=== PATIENT | female | born 2000 | race Caucasian/White ===

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

== ENCOUNTER 2020-03-06 17:03 | Emergency (ER) | payer BC, OTHER ==
[2020-03-06 17:12] VITALS: RESP 18
[2020-03-06] MEDS ORDERED: KETOROLAC 15 MG/ML 1 ML VIAL IM STA (18:30)
--- NOTE | 2020-03-06 18:35 | XR ---
EXAMINATION TYPE: XR Hip RT and AP Pelvis DATE OF EXAM: 03/06/2020 COMPARISON: NONE HISTORY: Pelvic and right hip pain for 3 days. TECHNIQUE: A single AP view of the pelvis is obtained. Two views of the right hip are obtained. FINDINGS: There is no acute fracture/dislocation evident in the pelvis. The hip and sacroiliac join ts appear symmetric and unremarkable. Pubic symphysis is intact. The overlying soft tissue appears u nremarkable. Two views of right hip show no acute fracture or dislocation. No focal lytic or sclerotic lesion see n in the proximal right femur. The overlying soft tissue is unremarkable. Growth plates are closed. IMPRESSION: As above.
--- NOTE | 2020-03-06 19:22 | ED ---
Lower Extremity Injury HPI - General Chief Complaint: Extremity Injury, Lower Stated Complaint: hip pain Time Seen by Provider: 03/06/20 17:15 Source: patient Mode of arrival: ambulatory Limitations: no limitations - History of Present Illness Initial Comments: Patient is a 19-year-old female presenting to emergency Department with complaints of lateral right hip pain for the past 3 days. Patient denies any injuries or fall or specific events that could've triggered this pain. She states she's never had this before. She [place] and running around. The urgent care today for an x-ray and they sent her in the ER. Patient denies any fever, chills, nausea or vomiting. 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 She has no further complaints at this time. Upon arrival to the ER, her vitals are stable. - Related Data Home Medications Medication Instructions Recorded Confirmed Albuterol Nebulized [Ventolin 2.5 mg INHALATION RT-Q4H PRN 08/03/17 08/03/17 Nebulized] Amoxicillin/Potassium Clav 1 tab PO Q12HR 08/03/17 08/03/17 [Augmentin 875-125 Tablet] Fluticasone Nasal [place] [Flonase 1 spray EA NOSTRIL DAILY PRN 08/03/17 08/03/17 Nasal [place]] Naproxen Sodium [Aleve] 440 mg PO ONCE PRN 08/03/17 08/03/17 Norgestimate-Ethinyl Estradiol 1 tab PO DAILY 08/03/17 08/03/17 [Sprintec 28 Day Tablet] predniSONE 10 mg PO DAILY 08/03/17 08/03/17 Previous Rx's Medication Instructions Recorded Albuterol Nebulized [Ventolin 2.5 mg INHALATION Q4H PRN 10 Days 08/03/17 Nebulized] nebu Butalb/APAP/Caff 50-325-40Mg 1 tab PO Q4H PRN #12 tablet 02/04/18 [Fioricet 50-325-40] Nitrofurantoin Monohyd/M-Cryst 100 mg PO Q12HR #14 cap 02/04/18 [Macrobid] predniSONE 50 mg PO DAILY #3 tab 02/17/19 predniSONE [Deltasone] 20 mg PO BID 5 Days #10 tab 03/06/20 Allergies Allergy/AdvReac Type Severity Reaction Status Date / Time cephalexin monohydrate Allergy Swelling Verified 03/06/20 17:09 [From Keflex] Review of Systems ROS Statement: Those systems with pertinent positive or pertinent negative responses have been documented in the HPI. ROS Other: All systems not noted in ROS Statement are negative. Past Medical History Past Medical History: No Reported History History of Any Multi-Drug Resistant Organisms: MRSA Date of last positivie culture/infection: 01/29/15 MDRO Source:: Left leg Past Surgical History: Adenoidectomy, Ear Surgery, Tonsillectomy Past Psychological History: Anxiety, Depression Smoking Status: Never smoker Past Alcohol Use History: None Reported Past Drug Use History: None Reported General Exam - General Exam Comments Initial Comments: GENERAL: Patient is well-developed and well-nourished. Patient is nontoxic and in no acute distress. HEAD: Atraumatic, normocephalic. EYES: Pupils equal round and reactive to light, extraocular movements intact, sclera anicteric, conjunctiva are normal. Eyelids were unremarkable. ENT: TMs normal, nares patent, oropharynx clear without exudates. Moist mucous membranes. NECK: Normal range of motion, supple without lymphadenopathy or JVD. LUNGS: Unlabored respirations. Breath sounds clear to auscultation bilaterally and equal. No wheezes rales or rhonchi. HEART: Regular rate and rhythm without murmurs, rubs or gallops. ABDOMEN: Soft, nontender, normoactive bowel sounds. No guarding, no rebound. No masses appreciated. : Deferred MUSCULOSKELETAL: Pain with palpation of the right lateral hip, over trochanteric area. She does have full range of motion of the right hip, pain at the end range. It is no swelling, no overlying erythema or signs of infection. No clubbing or cyanosis. NEUROLOGICAL: Patient is alert and oriented x 3. Motor and sensory are also intact. Normal speech, normal gait. PSYCH: Normal mood, normal affect. SKIN: Warm, Dry, normal turgor, no rashes or lesions noted. Limitations: no limitations Course Vital Signs 03/06/20 03/06/20 17:09 19:48 Temperature 99.0 F 98.4 F Pulse Rate 70 61 Respiratory 18 18 Rate Blood Pressure 132/82 125/67 O2 Sat by Pulse 99 97 Oximetry Medical Decision Making - Medical Decision Making Patient is a 19-year-old female here for right lateral hip pain for 3 days. She was seen in urgent care today and sent to the ER. X-rays revealed no acute fractures dislocations or lesions of her right hip. I discussed the patient and her symptoms are consistent with trochanteric bursitis. Recommended ice to the area, rest, and I'll prescribe her short course of steroids. I discussed with patient that his symptoms persist after 1-2 weeks to follow up with orthopedics. I will give her referral. Patient is requesting a work note. She is stable for discharge and is in agreement with this plan of care. Disposition Clinical Impression: Trochanteric bursitis, right hip Disposition: HOME SELF-CARE Condition: Stable Instructions (If sedation given, give patient instructions): Hip Bursitis (ED) Additional Instructions: Please return to the Emergency Department if symptoms worsen or any other concerns. Continue with ice to the area as well as ibuprofen or Aleve for discomfort. Take steroids as prescribed. Follow-up with orthopedics if symptoms persist after 1-2 weeks. Prescriptions: predniSONE [Deltasone] 20 mg PO BID 5 Days #10 tab Is patient prescribed a controlled substance at d/c from ED?: No Referrals: Karie eMdrano MD [Primary Care Provider] - 1-2 days Negrito Courtney MD [STAFF PHYSICIAN] - 1-2 days
[2020-03-06 19:48] VITALS: BP 125/67; PULSE 61; TEMP 98.4
== END 2020-03-06 19:48 | disposition home or self-care (01) ==
LOC: EC 17:03
DX: M70.61 Trochanteric bursitis, right hip (principal); Z88.8 Allergy status to other drugs, medicaments and biological substances; Z86.14 Personal history of Methicillin resistant Staphylococcus aureus infection
CPT/HCPCS: 73502; 99283; 96372; J1885

== ENCOUNTER 2021-07-03 20:32 | Emergency (ER) | payer OTHER ==
[2021-07-03] MEDS ORDERED: ACETAMINOPHEN TAB 500 MG TAB PO STA (21:55)
--- NOTE | 2021-07-03 21:58 | ED ---
General Adult HPI - General Chief complaint: Fever Stated complaint: Fever,Body ache-26 weeks preg. Time Seen by Provider: 07/03/21 21:52 Source: patient, family, RN notes reviewed Mode of arrival: ambulatory Limitations: physical limitation - History of Present Illness Initial comments: This is a pleasant 20-year-old female who presents to the emergency department complaining of cough, body aches, low-grade fever, and stuffy nose. Patient has been exposed to COVID-19 in multiple family members. Patient states she had a rapid test done at urgent care earlier in the week which was negative. However she continues to have symptomology. She denies any chest pain. No nausea or vomiting. No abdominal pain. No problems with bowel or urination. No headache. No vision or hearing changes. No numbness or tingling. No skin rashes or lesions. Patient is 26 weeks . Patient is . Patient denies any vaginal bleeding or vaginal leakage. No other health problems. - Related Data Home Medications Medication Instructions Recorded Confirmed Albuterol Nebulized [Ventolin 2.5 mg INHALATION RT-Q4H PRN 08/03/17 08/03/17 Nebulized] Amoxicillin/Potassium Clav 1 tab PO Q12HR 08/03/17 08/03/17 [Augmentin 875-125 Tablet] Fluticasone Nasal [place] [Flonase 1 spray EA NOSTRIL DAILY PRN 08/03/17 08/03/17 Nasal [place]] Naproxen Sodium [Aleve] 440 mg PO ONCE PRN 08/03/17 08/03/17 Norgestimate-Ethinyl Estradiol 1 tab PO DAILY 08/03/17 08/03/17 [Sprintec 28 Day Tablet] predniSONE 10 mg PO DAILY 08/03/17 08/03/17 Previous Rx's Medication Instructions Recorded Albuterol Nebulized [Ventolin 2.5 mg INHALATION Q4H PRN 10 Days 08/03/17 Nebulized] nebu Butalb/APAP/Caff 50-325-40Mg 1 tab PO Q4H PRN #12 tablet 02/04/18 [Fioricet 50-325-40] Nitrofurantoin Monohyd/M-Cryst 100 mg PO Q12HR #14 cap 02/04/18 [Macrobid] predniSONE 50 mg PO DAILY #3 tab 02/17/19 predniSONE [Deltasone] 20 mg PO BID 5 Days #10 tab 03/06/20 Allergies Allergy/AdvReac Type Severity Reaction Status Date / Time cephalexin monohydrate Allergy Swelling Verified 07/03/21 21:45 [From Keflex] Review of Systems ROS Statement: Those systems with pertinent positive or pertinent negative responses have been documented in the HPI. ROS Other: All systems not noted in ROS Statement are negative. Past Medical History Past Medical History: No Reported History History of Any Multi-Drug Resistant Organisms: MRSA Date of last positivie culture/infection: 01/29/15 MDRO Source:: Left leg Past Surgical History: Adenoidectomy, Ear Surgery, Tonsillectomy Past Psychological History: Anxiety, Depression Smoking Status: Never smoker Past Alcohol Use History: None Reported Past Drug Use History: None Reported General Exam - General Exam Comments Initial Comments: Patient does not appear to be ill or toxic. Vital signs stable, patient afebrile. Limitations: physical limitation General appearance: alert, in no apparent distress Head exam: Present: atraumatic, normocephalic, normal inspection Eye exam: Present: normal appearance, PERRL, EOMI. Absent: scleral icterus, conjunctival injection, periorbital swelling ENT exam: Present: normal exam, mucous membranes moist Neck exam: Present: normal inspection. Absent: tenderness, meningismus, lymphadenopathy Respiratory exam: Present: normal lung sounds bilaterally. Absent: respiratory distress, wheezes, rales, rhonchi, stridor Cardiovascular Exam: Present: regular rate, normal rhythm, normal heart sounds. Absent: systolic murmur, diastolic murmur, rubs, gallop, clicks GI/Abdominal exam: Present: soft, normal bowel sounds, other (Uterus consistent with dates). Absent: distended, tenderness, guarding, rebound, rigid Extremities exam: Present: normal inspection, full ROM, normal capillary refill. Absent: tenderness, pedal edema, joint swelling, calf tenderness Back exam: Present: normal inspection Neurological exam: Present: alert, oriented X3, CN II-XII intact Psychiatric exam: Present: normal affect, normal mood Skin exam: Present: warm, dry, intact, normal color. Absent: rash Course Vital Signs 07/03/21 21:40 Temperature 99.4 F Pulse Rate 100 Respiratory 18 Rate Blood Pressure 113/72 O2 Sat by Pulse 100 Oximetry Medical Decision Making - Medical Decision Making Patient presents with symptoms consistent with upper respiratory infection and viral syndrome after being exposed to COVID-19 in multiple family members. Had a negative test at urgent care earlier in the week. However given that she has been seen a COVID-19 pandemic. We're going to repeat the COVID-19 test. Patient has a history of asthma. Patient would meet criteria for monoclonal antibody. 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 We'll also add on a flu test. Patient no adventitious lung sounds. I don't think any imaging is in order. Patient has no chest pain. I believe other etiologies such as bacterial pneumonia, pulmonary embolism are not consistent with the presentation. Patient did, positive for COVID-19. We will infuse the monoclonal antibody as the patient meets criteria with . Patient counseled on quarantine measures. Patient counseled on need for follow- up. Patient was told to return to the ER for any signs or symptoms worsen. Told to return immediately if any other problems arise. All questions answered. Treatment plan discussed. Patient in agreement heart tones were in the 150s. - Lab Data Lab Results 07/03/21 07/03/21 Range/Units 21:54 22:50 Coronavirus (PCR) Detected A (Not Detectd) Influenza Type A RNA Not Detected (Not Detectd) Influenza Type B (PCR) Not Detected (Not Detectd) Disposition Clinical Impression: COVID-19, Current determined by history Disposition: HOME SELF-CARE Instructions (If sedation given, give patient instructions): Coronavirus Disease 2019 (COVID-19) Additional Instructions: Follow-up with your regular physician as directed. Return to the ER immediately if any symptoms worsen, new symptoms arise, or any other problems develop. Follow-up with Dr. Duggan as discussed. Is patient prescribed a controlled substance at d/c from ED?: No Referrals: Jeanine Duggan DO [Doctor of Osteopathic Medicine] - 1-2 days
[2021-07-04] MEDS ORDERED: CASIRIVIMAB (REGN10933) (EUA) 600 MG, IMDEVIMAB (REGN10987) (EUA) 600 MG in SODIUM CHLO... IVPB ONE (00:30)
[2021-07-04] MEDS ORDERED: SODIUM CHLORIDE 0.9% 50 ML IVPB ONE (00:30)
[2021-07-04 02:06] VITALS: BP 115/73; PULSE 90; RESP 16; TEMP 98.7
== END 2021-07-04 02:40 | disposition home or self-care (01) ==
LOC: EC 20:32
DX: O98.512 Other viral diseases complicating pregnancy, second trimester (principal); U07.1 COVID-19; F41.9 Anxiety disorder, unspecified; F32.A Depression, unspecified; Z3A.26 26 weeks gestation of pregnancy
CPT/HCPCS: 87502; 87635; 99284; Q0244

== ENCOUNTER 2021-08-04 18:17 | Outpatient (CLI) | payer OTHER ==
[2021-08-04 19:27] VITALS: BP 134/86; PULSE 89; RESP 16; TEMP 97
--- NOTE | 2021-08-08 07:56 | P.MSEPDOC ---
Presenting Problems - Arrival Data Date of Arrival on Unit: 08/04/21 Time of Arrival on Unit: 18:17 Mode of Transport: Ambulatory - Complaint OB-Reason for Admission/Chief Complaint: Decreased Movement Medical History - Information : 1 Para: 0 Term: 0 : 0 Abortions: Spontaneous or Elective: 0 Number of Living Children: 0 - Gestational Age Gestational Age by BERNICE (wks/days): 30 Weeks and 4 Days Review of Systems - Review of Systems Constitutional: No problems Breast: No problems ENT: No problems Cardiovascular: No problems Respiratory: No problems Gastrointestinal: No problems Genitourinary: No problems Musculoskeletal: No problems Neurological: No problems Skin: No problems Vital Signs - Temperature Temperature: 97.0 F Temperature Source: Temporal Artery Scan - Pulse Pulse Oximetery Pulse Rate: 89 Pulse Assessment Method: Automatic Cuff - Respirations Respiratory Rate: 16 Oxygen Delivery Method: Room Air O2 Sat by Pulse Oximetry: 100 - Blood Pressure Right Arm Blood Pressure: 134/86 Blood Pressure Mean: 102 Blood Pressure Source: Automatic Cuff Medical Screen Scoring - Cervical Exam Membranes: Intact - Assessment - Baby A Baseline FHR: 130 Heart Rate - NICHD Category: Category I (Normal) NST: Reactive Physician Notification - Physician Notified Physician Notified Date: 08/04/21 Physician Notified Time: 19:10 Physician: Tammie Santacruz New Order Received: Yes - Notification Comment Comment: Dr. Santacruz updated re: pt c/o decreased movement since yesterday, denies bleeding, leaking of fluid or further complications, reactive NST with 10x10's, no contx and positive movement per pt since arrival in triage. Orders received to d/c pt home at this time Maternal Triage Index - Maternal Triage Index Presenting for scheduled procedure w/no complaint: No - Stat/Priority 1 Stat Priority 1: No - Urgent/Priority 2 Urgent Priority 2: Yes Provider Notified: Tammie Santacruz Provider Notified Time: 19:10 Criteria Met for Priority 2: C/o decreased movement Disposition - Disposition OB Disposition: Discharge to home Discharge Date: 08/04/21 Discharge Time: 19:15 I agree with the RN Medical Screening Exam: Yes Case reviewed; plan agreed upon as documented in EMR&OBIX.: Yes Diagnosis: DECREASED MOVEMENTS, THIRD TRIMESTER, FETUS 1
== END 2021-08-04 19:15 | disposition home or self-care (01) ==
LOC: FBPOP 18:17
PROVIDERS: ATTEND Obstetrics & Gynecology
DX: O36.8131 Decreased fetal movements, third trimester, fetus 1 (principal); Z3A.30 30 weeks gestation of pregnancy; Z88.1 Allergy status to other antibiotic agents
CPT/HCPCS: 59025; G0463; 99213

== ENCOUNTER 2021-09-05 07:07 | Outpatient (CLI) | payer OTHER ==
[2021-09-05 08:56] LABS: Appearance,Urine Cloudy (Clear); Bacteria,Urine Rare /hpf; Bilirubin,Urine Negative (Negative); Blood,Urine Trace (Negative); Color,Urine Yellow; Glucose,Urine (UA) Negative (Negative); Hyaline Casts,Urine 1 /lpf (0-2); Ketones,Urine Negative (Negative); Leukocyte Esterase,Urine Large (Negative); Mucus,Urine Few /hpf; Nitrite,Urine Negative (Negative); PH, Urine 6.5 (5.0-8.0); Protein,Urine Trace (Negative); RBC,Urine 1 /hpf (0-5); Specific Gravity,Urine 1.025 (1.001-1.035); Squamous Epithelial Cell,Urine 13 /hpf (0-4); Urobilinogen,Urine <2.0 mg/dL (<2.0); WBC,Urine 14 /hpf (0-5)
[2021-09-05 09:22] VITALS: BP 121/74; PULSE 96; RESP 16; TEMP 97.7
--- NOTE | 2021-09-08 08:15 | P.MSEPDOC ---
Presenting Problems - Arrival Data Date of Arrival on Unit: 09/05/21 Time of Arrival on Unit: 07:16 Mode of Transport: Wheelchair - Complaint OB-Reason for Admission/Chief Complaint: Other Comment: PT ARRIVED C/O VAGINAL PRESSURE AND RIGHT SIDE DISCOMFORT Medical History - Information : 1 Para: 0 Term: 0 : 0 Abortions: Spontaneous or Elective: 0 Number of Living Children: 0 - Gestational Age Gestational Age by BERNICE (wks/days): 35 Weeks and 1 Days Review of Systems - Review of Systems Constitutional: No problems Breast: No problems ENT: No problems Cardiovascular: No problems Respiratory: No problems Gastrointestinal: No problems Genitourinary: No problems Musculoskeletal: No problems Neurological: No problems Skin: No problems Vital Signs - Temperature Temperature: 97.7 F Temperature Source: Oral - Pulse Right Brachial Pulse Rate: 96 Pulse Assessment Method: Automatic Cuff - Respirations Respiratory Rate: 16 Oxygen Delivery Method: Room Air - Blood Pressure Right Arm Blood Pressure: 121/74 Blood Pressure Mean: 89 Blood Pressure Source: Automatic Cuff Medical Screen Scoring - Cervical Exam Dilation (cm): 0 Effacement (%): 50 Station: -2 Membranes: Intact - Uterine Contractions Resting: Soft to palpation - Assessment - Baby A Baseline FHR: 130 Heart Rate - NICHD Category: Category I (Normal) Physician Notification - Physician Notified Physician Notified Date: 09/05/21 Physician Notified Time: 09:05 Physician: DR SAVANNAH Amaral Order Received: Yes - Notification Comment Comment: MAY DICHAR[facility] TO HOME UNDELIVERED Maternal Triage Index - Non-Urgent/Priority 4 Non-Urgent Priority 4: Yes Criteria Met for Priority 4: PT ARRIVED C/O LOWER VAGINAL PRESSURE AND RIGHT SIDED DISCOMFORT. PT CLOSED AND NO CONTRACTIONS AND REACTIVE nst V/S STABLE Disposition - Disposition OB Disposition: Discharge to home Discharge Date: 09/05/21 Discharge Time: 09:20 I agree with the RN Medical Screening Exam: Yes Case reviewed; plan agreed upon as documented in EMR&OBIX.: Yes Diagnosis: RELATED CONDITIONS, UNSPECIFIED, THIRD TRIMESTER
== END 2021-09-05 09:20 | disposition home or self-care (01) ==
LOC: FBPOP 07:07
PROVIDERS: ATTEND Obstetrics & Gynecology
DX: O26.893 Other specified pregnancy related conditions, third trimester (principal); R10.2 Pelvic and perineal pain; Z3A.35 35 weeks gestation of pregnancy; Z88.1 Allergy status to other antibiotic agents
CPT/HCPCS: 59025; 81001; G0463; 99213

== ENCOUNTER 2021-09-11 12:36 | Outpatient (CLI) | payer OTHER ==
[2021-09-11 14:01] VITALS: BP 124/77; PULSE 103; RESP 16; TEMP 97.6
--- NOTE | 2021-09-12 11:15 | P.MSEPDOC ---
Presenting Problems - Arrival Data Date of Arrival on Unit: 09/11/21 Time of Arrival on Unit: 12:36 Mode of Transport: Ambulatory - Complaint OB-Reason for Admission/Chief Complaint: Rule Out SROM Comment: pt presents to triage from office, pt states she felt a large gush of clear fluid last night around 2300 after having intercourse and cont to feeling small trickles of fluid this morning, she was sent over for amnisure eval, denies complications with Medical History - Information : 1 Para: 0 Term: 0 : 0 Abortions: Spontaneous or Elective: 0 Number of Living Children: 0 - Gestational Age Gestational Age by BERNICE (wks/days): 36 Weeks and 0 Days Review of Systems - Review of Systems Constitutional: No problems Breast: No problems ENT: No problems Cardiovascular: No problems Respiratory: No problems Gastrointestinal: No problems Genitourinary: No problems Musculoskeletal: No problems Neurological: No problems Skin: No problems Vital Signs - Temperature Temperature: 97.6 F Temperature Source: Temporal Artery Scan - Pulse Right Brachial Pulse Rate: 103 Pulse Assessment Method: Automatic Cuff - Respirations Respiratory Rate: 16 Oxygen Delivery Method: Room Air - Blood Pressure Right Arm Blood Pressure: 124/77 Blood Pressure Mean: 92 Blood Pressure Source: Automatic Cuff Medical Screen Scoring - Cervical Exam Dilation (cm): 0 Effacement (%): 50 Membranes: Intact - Assessment - Baby A Baseline FHR: 135 Heart Rate - NICHD Category: Category I (Normal) NST: Reactive Physician Notification - Physician Notified Physician Notified Date: 09/11/21 Physician Notified Time: 13:35 Physician: Jeanine Duggan Order Received: Yes (dc home) Maternal Triage Index - Prompt/Priority 3 Prompt Priority 3: Yes Criteria Met for Priority 3: amnisure negative, pt ok to dc home, dr duggan contacted at [phone] Disposition - Disposition OB Disposition: Discharge to home, Written follow up instructions reviewed Discharge Date: 09/11/21 Discharge Time: 13:40 I agree with the RN Medical Screening Exam: Yes Case reviewed; plan agreed upon as documented in EMR&OBIX.: Yes Diagnosis: FALSE LABOR BEFORE 37 COMPLETED WEEKS OF GEST, THIRD TRI
== END 2021-09-11 13:40 | disposition home or self-care (01) ==
LOC: FBPOP 12:36
PROVIDERS: ATTEND Obstetrics & Gynecology
DX: O47.03 False labor before 37 completed weeks of gestation, third trimester (principal); Z3A.36 36 weeks gestation of pregnancy; Z88.1 Allergy status to other antibiotic agents
CPT/HCPCS: 59025; 84112; G0463; 99213

== ENCOUNTER 2022-12-09 19:13 | Inpatient (IN) | payer OTHER ==
[2022-12-09] MEDS ORDERED: ONDANSETRON 4 MG/2 ML VIAL IVP STA (20:48)
[2022-12-09] MEDS ORDERED: MORPHINE SULFATE 4 MG/ML SYRINGE IVP STA (20:48)
[2022-12-09 20:49] LABS: Basophils % (A) 0 %; Eosinophils # (A) 0.2 k/uL (0-0.7); Eosinophils % (A) 1 %; HCT 40.9 % (34.0-46.0); Lymphocytes # (A) 3.3 k/uL (1.0-4.8); Lymphocytes % (A) 22 %; MCH 24.7 pg (25.0-35.0); MCHC 31.7 g/dL (31.0-37.0); Mean Platelet Volume 7.6; Microcytosis Slight; Monocytes # (A) 0.5 k/uL (0-1.0); Monocytes % (A) 3 %; Neutrophils # (A) 10.7 k/uL (1.3-7.7); Neutrophils % (A) 72 %; Platelet Count 347 k/uL (150-450); RBC 5.25 m/uL (3.80-5.40); RDW 15.4 % (11.5-15.5); WBC 14.8 k/uL (3.8-10.6)
[2022-12-09] MEDS ORDERED: SODIUM CHLORIDE 0.9% 1,000 ML IV ONE (20:49)
[2022-12-09 21:00] LABS: ALT 23 U/L (4-34); AST 41 U/L (14-36); African American GFR (CKD) >90 (>60 ml/min/1.73 sqM); Albumin 4.9 g/dL (3.5-5.0); Alkaline Phosphatase 99 U/L (38-126); Amylase 67 U/L (30-110); Anion Gap 15 mmol/L; Blood Urea Nitrogen 12 mg/dL (7-17); Calcium 9.8 mg/dL (8.4-10.2); Carbon Dioxide 19 mmol/L (22-30); Chloride 105 mmol/L (98-107); Glucose 148 mg/dL (74-99); Lipase 278 U/L (23-300); Non-African American GFR(CKD) >90 (>60 ml/min/1.73 sqM); Potassium 3.9 mmol/L (3.5-5.1); Sodium 139 mmol/L (137-145); Total Bilirubin 0.5 mg/dL (0.2-1.3); Total Protein 8.3 g/dL (6.3-8.2)
--- NOTE | 2022-12-09 21:40 | ED ---
Abdominal Pain HPI - General Chief Complaint: Abdominal Pain Stated Complaint: abd pain Time Seen by Provider: 12/09/22 20:42 Source: patient, family Mode of arrival: wheelchair Limitations: no limitations - History of Present Illness Initial Comments: Patient is a 22-year-old female presenting with chief complaint of abdominal pain. Patient states that this evening she started experiencing pain in the epigastric and right upper quadrant region. Patient states that the pain is very sharp. She has had episodes of these pains ongoing for several months. She admits to nausea and vomiting. No fevers or chills. No dysuria or hematuria. No diarrhea, hematochezia, melena. No chest pain or difficulty breathing. Abdominal surgeries include . - Related Data Previous Rx's Medication Instructions Recorded Ibuprofen [Motrin] 600 mg PO Q6H #40 tab 10/04/21 oxyCODONE HCL [OxyIR] 5 mg PO Q4HR PRN #18 tab 10/04/21 Allergies Allergy/AdvReac Type Severity Reaction Status Date / Time cephalexin monohydrate Allergy Anaphylaxis Verified 10/02/21 06:09 [From Keflex] clindamycin Allergy Rash/Hives Verified 10/03/21 00:34 Review of Systems ROS Statement: Those systems with pertinent positive or pertinent negative responses have been documented in the HPI. ROS Other: All systems not noted in ROS Statement are negative. Past Medical History Past Medical History: Asthma Additional Past Medical History / Comment(s): History of tailbone fracture; Hyperprolactinemia History of Any Multi-Drug Resistant Organisms: MRSA Date of last positivie culture/infection: 01/29/15 MDRO Source:: Left leg Past Surgical History: Adenoidectomy, Ear Surgery, Tonsillectomy Past Anesthesia/Blood Transfusion Reactions: No Reported Reaction Past Psychological History: Anxiety, Depression Smoking Status: Never smoker Past Alcohol Use History: None Reported Past Drug Use History: None Reported - Past Family History Mother Family Medical History: Hypertension Father Family Medical History: Diabetes Mellitus, Hypertension General Exam Limitations: no limitations General appearance: alert, in no apparent distress Head exam: Present: atraumatic, normocephalic, normal inspection Eye exam: Present: normal appearance, EOMI. Absent: scleral icterus, periorbital swelling Neck exam: Present: normal inspection, full ROM Respiratory exam: Present: normal lung sounds bilaterally. Absent: respiratory distress, wheezes, rales, rhonchi, stridor Cardiovascular Exam: Present: regular rate, normal rhythm, normal heart sounds. Absent: systolic murmur, diastolic murmur, rubs, gallop, clicks GI/Abdominal exam: Present: soft, tenderness, guarding. Absent: distended, rebound, rigid Expanded GI/Abdominal exam: Present: Orantes's sign Neurological exam: Present: alert, oriented X3, CN II-XII intact Psychiatric exam: Present: normal affect, normal mood Skin exam: Present: warm, dry, intact, normal color. Absent: rash Course Vital Signs 12/09/22 12/09/22 19:43 22:01 Temperature 98 F Pulse Rate 61 61 Respiratory 20 18 Rate Blood Pressure 101/58 94/66 O2 Sat by Pulse 100 100 Oximetry Medical Decision Making - Medical Decision Making Was pt. sent in by a medical professional or institution (, PA, WEBLOGIC DEVELOPER, urgent care, hospital, or long term...) When possible be specific @ -No Did you speak to anyone other than the patient for history (EMS, parent, family, police, friend...)? What history was obtained from this source @ -No Did you review nursing and triage notes (agree or disagree)? Why? @ -I reviewed and agree with nursing and triage notes Were old charts reviewed (outside hosp., previous admission, EMS record, old EKG, old radiological studies, urgent care reports/EKG's, long term records)? Report findings @ -No old charts were reviewed Differential Diagnosis (chest pain, altered mental status, abdominal pain women, abdominal pain men, vaginal bleeding, weakness, fever, dyspnea, syncope, headache, dizziness, GI bleed, back pain, seizure, CVA, palpatations, mental health, musculoskeletal)? @ -MDM Differential Abdominal Pain Women: Appendicitis, Cholecystitis, diverticulosis, ischemic bowel, pancreatitis, hepatitis, UTI, gastroenteritis, AAA, incarcerated hernia, bowel obstruction, constipation, inflammatory bowel, hepatitis, peptic ulcer disease, splenic infarction, perforated viscus, vulvitis, ovarian torsion, PID, kidney stone, placenta abruption... This is not meant to be an all-inclusive list EKG interpreted by me (3pts min.). @ -As above X-rays interpreted by me (1pt min.). @ -None done CT interpreted by me (1pt min.). @ -None done U/S interpreted by me (1pt. min.). @ -Ultrasound shows few scattered gallstones within a dilated gallbladder. No evidence of wall thickening or pericholecystic fluid. Given a positive sonographic Orantes sign correlate for cholecystitis. What testing was considered but not performed or refused? (CT, X-rays, U/S, labs)? Why? @ -None What meds were considered but not given or refused? Why? @ -None Did you discuss the management of the patient with other professionals (professionals i.e. , PA, WEBLOGIC DEVELOPER, lab, RT, psych nurse, social science research assistant, air transportation provider, teacher, customs officer, case management coordinator)? Give summary @ -I spoke with general surgeon manager of administration Dr. Alex who advised admission of this patient Was smoking cessation discussed for >3mins.? @ -No Was critical care preformed (if so, how long)? @ -No Were there social determinants of health that impacted care today? How? (Homelessness, low income, unemployed, alcoholism, drug addiction, transportatio n, low edu. Level, literacy, decrease access to med. care, fdc, rehab)? @ -No Was there de-escalation of care discussed even if they declined (Discuss DNR or withdrawal of care, Hospice)? DNR status @ -No What co-morbidities impacted this encounter? (DM, HTN, Smoking, COPD, CAD, Cancer, CVA, ARF, Chemo, Hep., AIDS, mental health diagnosis, sleep apnea, morbid obesity)? @ -None Was patient admitted / discharged? Hospital course, mention meds given and route, prescriptions, significant lab abnormalities, going to OR and other pertinent info. @ -22-year-old female presenting with chief complaint of upper abdominal pain accompanied by nausea and vomiting. On physical examination there is positive Orantes's sign. WBC 14.8. Negative urine hCG. Ultrasound shows multiple gallstones within a dilated gallbladder. Positive sonographic Orantes sign. I spoke with general surgeon manager of administration Dr. Alex who advised admission of this patient. She started on Zosyn and placed nothing by mouth. Patient is agreeable with this plan. I discussed this case with my attending Dr. Mejia Undiagnosed new problem with uncertain prognosis? @ -No Drug Therapy requiring intensive monitoring for toxicity (Heparin, Nitro, Insulin, Cardizem)? @ -No Were any procedures done? @ -No Diagnosis/symptom? @ -Acute cholecystitis Acute, or Chronic, or Acute on Chronic? @ -Acute Uncomplicated (without systemic symptoms) or Complicated (systemic symptoms)? @ -Complicated Side effects of treatment? @ -No Exacerbation, Progression, or Severe Exacerbation? @ -No Poses a threat to life or bodily function? How? (Chest pain, USA, [place], pneumonia, PE, COPD, DKA, ARF, appy, cholecystitis, CVA, Diverticulitis, Homicidal, Suicidal, threat to staff... and all critical care pts) @ -Yes - Lab Data Result diagrams: 12/09/22 20:14 12/09/22 20:14 Lab Results 12/09/22 12/09/22 12/09/22 Range/Units 20:14 20:14 20:14 WBC 14.8 H (3.8-10.6) k/uL RBC 5.25 (3.80-5.40) m/uL Hgb 13.0 (11.4-16.0) gm/dL Hct 40.9 (34.0-46.0) % MCV 78.0 L (80.0-100.0) fL MCH 24.7 L (25.0-35.0) pg MCHC 31.7 (31.0-37.0) g/dL RDW 15.4 (11.5-15.5) % Plt Count 347 (150-450) k/uL MPV 7.6 Neutrophils % 72 % Lymphocytes % 22 % Monocytes % 3 % Eosinophils % 1 % Basophils % 0 % Neutrophils # 10.7 H (1.3-7.7) k/uL Lymphocytes # 3.3 (1.0-4.8) k/uL Monocytes # 0.5 (0-1.0) k/uL Eosinophils # 0.2 (0-0.7) k/uL Basophils # 0.0 (0-0.2) k/uL Microcytosis Slight Sodium 139 (137-145) mmol/L Potassium 3.9 (3.5-5.1) mmol/L Chloride 105 (98-107) mmol/L Carbon Dioxide 19 L (22-30) mmol/L Anion Gap 15 mmol/L BUN 12 (7-17) mg/dL Creatinine 0.64 (0.52-1.04) mg/dL Est GFR (CKD-EPI)AfAm >90 (>60 ml/min/1.73 sqM) Est GFR (CKD-EPI)NonAf >90 (>60 ml/min/1.73 sqM) Glucose 148 H (74-99) mg/dL Calcium 9.8 (8.4-10.2) mg/dL Total Bilirubin 0.5 (0.2-1.3) mg/dL AST 41 H (14-36) U/L ALT 23 (4-34) U/L Alkaline Phosphatase 99 (38-126) U/L Troponin I <0.012 (0.000-0.034) ng/mL Total Protein 8.3 H (6.3-8.2) g/dL Albumin 4.9 (3.5-5.0) g/dL Amylase 67 (30-110) U/L Lipase 278 (23-300) U/L Disposition Clinical Impression: Cholecystitis Disposition: ADMITTED IP TO THIS HOSP Condition: Fair
--- NOTE | 2022-12-09 22:07 | US ---
EXAMINATION TYPE: US abdomen limited DATE OF EXAM: 12/09/2022 COMPARISON: NONE CLINICAL INDICATION: Female, 22 years old with history of epigastric and RUQ pain; epigastric and RUQ pain x 3 weeks on and off TECHNIQUE: Multiple sonographic images of the right upper quadrant are obtained. FINDINGS: EXAM MEASUREMENTS: Liver Length: 15.8 cm Gallbladder Wall: 0.28 cm CBD: 0.47 cm Right Kidney: 10.9 x 6.7 x 4.8 cm DIRECTOR GENERAL NOTES: Pancreas: Tail obscured by bowel gas. Parts visualized appear wnl Liver: wnl Gallbladder: Multiple gallstones visualized. Appears to be hydropic Evidence for sonographic Orantes's sign: Yes CBD: wnl Right Kidney: wnl IMPRESSION: Few scattered gallstones within within a dilated gallbladder. No evidence of wall thickening or peric holecystic fluid. Given a positive sonographic Orantes's sign, correlate for acute cholecystitis. This can be confirmed with HIDA scan.
[2022-12-10] MEDS ORDERED: NALOXONE 0.4 MG/ML 1 ML VIAL IV PRN (00:19)
[2022-12-10] MEDS ORDERED: PIPERACILLIN-TAZOBACTAM 3.375 GM in SODIUM CHLORIDE 0.9% 100 ML IVPB STA (00:20)
[2022-12-10 02:46] LABS: Appearance,Urine Cloudy (Clear); Bilirubin,Urine Negative (Negative); Blood,Urine Negative (Negative); Color,Urine Yellow; Glucose,Urine (UA) Negative (Negative); Hyaline Casts,Urine 1 /lpf (0-2); Ketones,Urine Negative (Negative); Leukocyte Esterase,Urine Trace (Negative); Mucus,Urine Many /hpf; Nitrite,Urine Negative (Negative); Protein,Urine Trace (Negative); RBC,Urine <1 /hpf (0-5); Specific Gravity,Urine 1.026 (1.001-1.035); Squamous Epithelial Cell,Urine 6 /hpf (0-4); Urobilinogen,Urine <2.0 mg/dL (<2.0); WBC,Urine 2 /hpf (0-5)
[2022-12-10] MEDS: SODIUM CHLORIDE 0.9% 1,000 ML IV SCH ×2 (02:57→18:27)
[2022-12-10] MEDS ORDERED: SCOPOLAMINE 1 MG/72 HR PATCH TRANSDERM STA (06:19)
[2022-12-10 06:54] LABS: Basophils % (A) 0 %; Eosinophils # (A) 0.1 k/uL (0-0.7); Eosinophils % (A) 1 %; HCT 35.8 % (34.0-46.0); HGB 11.6 gm/dL (11.4-16.0); Hypochromasia Slight; Lymphocytes % (A) 28 %; MCH 25.4 pg (25.0-35.0); MCHC 32.3 g/dL (31.0-37.0); MCV 78.5 fL (80.0-100.0); Mean Platelet Volume 7.5; Monocytes # (A) 0.4 k/uL (0-1.0); Monocytes % (A) 3 %; Neutrophils # (A) 7.3 k/uL (1.3-7.7); Neutrophils % (A) 67 %; Platelet Count 288 k/uL (150-450); RBC 4.57 m/uL (3.80-5.40); RDW 15.4 % (11.5-15.5); WBC 10.8 k/uL (3.8-10.6)
[2022-12-10] MEDS ORDERED: metroNIDAZOLE-NS PMX 500 MG in SALINE 100 100ML.BAG IVPB PRN (07:00)
[2022-12-10 07:05] LABS: ALT 104 U/L (4-34); AST 124 U/L (14-36); African American GFR (CKD) >90 (>60 ml/min/1.73 sqM); Albumin 3.6 g/dL (3.5-5.0); Albumin/Globulin Ratio 1.3; Alkaline Phosphatase 93 U/L (38-126); Anion Gap 4 mmol/L; Blood Urea Nitrogen 8 mg/dL (7-17); Calcium 8.5 mg/dL (8.4-10.2); Carbon Dioxide 26 mmol/L (22-30); Chloride 109 mmol/L (98-107); Globulin 2.8 g/dL; Glucose 82 mg/dL (74-99); Non-African American GFR(CKD) >90 (>60 ml/min/1.73 sqM); Sodium 139 mmol/L (137-145); Total Bilirubin 0.8 mg/dL (0.2-1.3); Total Protein 6.4 g/dL (6.3-8.2)
[2022-12-10] MEDS: ACETAMINOPHEN IV (For NPO) 1,000 MG in EMPTY BAG 1 BAG IVPB SCH ×3 (08:46→18:26)
[2022-12-10] MEDS: LEVOFLOXACIN 500MG-D5W PMX 500 MG in DEXTROSE/WATER 1 100ML.BAG IVPB SCH (09:18)
--- NOTE | 2022-12-10 09:38 | P.GSHP ---
History of Present Illness H&P Date: 12/10/22 CHIEF COMPLAINT: Cholecystitis HISTORY OF PRESENT ILLNESS: The patient is a 22-year-old female who presents with several week history of generalized malaise, abdominal pain. She reports having recent cardiac workup for atypical chest pain and epigastric abdominal pain. She presented to the emergency room where ultrasound findings were performed consistent with cholecystitis. Repeat blood work now demonstrates increased liver enzymes for choledocholithiasis. She reports decreased appetite . No fevers or chills at this time. She has a 1-year-old baby at home. She reports her throat closed being exposed to Keflex however she was able to tolerate Zosyn antibiotic. WBC on presentation elevated 14.8 down to 10.8 this morning. PAST MEDICAL HISTORY: Please see list PAST SURGICAL HISTORY: Please see list MEDICATIONS: Please see list ALLERGIES: Please see list SOCIAL HISTORY: Please see list FAMILY HISTORY: Please see list REVIEW OF ORGAN SYSTEMS: CONSTITUTIONAL: No reports of fevers or chills. HEENT: Denies any troubles with the vision or hearing. ENDOCRINE: No reports of hypothyroidism. No diabetes. RESPIRATORY: No recent pneumonias. CARDIOVASCULAR: Denies chest pain or palpitations GI: No blood in stools or constipation. MUSCULOSKELETAL: Has occasional joint pain including back pain. NEURO: No seizure disorders or headaches. No recent stroke. PSYCH: No suicidal ideation. Has depression GENITOURINARY: No active blood in urine. No urinary hesitancy. HEMATOLOGIC: No personal or family history of DVTs or pulmonary emboli. SKIN: No skin cancer. PHYSICAL EXAM: VITAL SIGNS: Afebrile vital signs stable GENERAL: Well-developed pleasant in no acute distress. HEENT: No scleral icterus. Extraocular movements grossly intact. Moist buccal mucosa. NECK: Supple without lymphadenopathy. CHEST: Unlabored respirations. Equal bilateral excursions. CARDIOVASCULAR: Regular rate regular rhythm rhythm. Distal 2+ pulses. ABDOMEN: Soft, nondistended. Tender along the epigastrium and right upper quadrant. MUSCULOSKELETAL: No clubbing, cyanosis, or edema. NEURO: Cranial nerves II to XII within normal limits. No focal or lateralizing signs. PSYCH: Alert and oriented to person, place and time. SKIN: Well-perfused good skin turgor. STUDIES: Ultrasound of the gallbladder independent review demonstrates multiple gallstones with distended gallbladder. This is my independent interpretation. LABS: WBC elevated at 14.8 on admission. LFTs trending upward 300% from 41-124 ASSESSMENT: 1. Acute cholecystitis 2. Elevated liver enzymes for choledocholithiasis PLAN: 1. Urgent consultation to GI for choledocholithiasis 2. Heparin for DVT prophylaxis 5000 units. 3. Antibiotic prophylaxis. 4. CBC and CMP 5. Inpatient hospitalization described Past Medical History Past Medical History: Asthma Additional Past Medical History / Comment(s): History of tailbone fracture; Hyperprolactinemia History of Any Multi-Drug Resistant Organisms: MRSA Date of last positivie culture/infection: 01/29/15 MDRO Source:: Left leg Past Surgical History: Adenoidectomy, Ear Surgery, Tonsillectomy Past Anesthesia/Blood Transfusion Reactions: No Reported Reaction Past Psychological History: Anxiety, Depression Smoking Status: Never smoker Past Alcohol Use History: None Reported Past Drug Use History: None Reported - Past Family History Mother Family Medical History: Hypertension Father Family Medical History: Diabetes Mellitus, Hypertension Medications and Allergies Home Medications Medication Instructions Recorded Confirmed Type Pef-Tqrf-Vtwox Acid 1 cap PO DAILY 12/10/22 12/10/22 History [-U Capsule (formulary)] Sertraline [Zoloft] 50 mg PO DAILY 12/10/22 12/10/22 History Allergies Allergy/AdvReac Type Severity Reaction Status Date / Time cephalexin monohydrate Allergy Anaphylaxis Verified 10/02/21 06:09 [From Keflex] clindamycin Allergy Rash/Hives Verified 10/03/21 00:34 vinyl ether Allergy Rash/Hives Verified 12/10/22 08:34 Surgical - Exam Vital Signs Temp Pulse Resp BP Pulse Ox 98 F 61 20 101/58 100 12/09/22 19:43 12/09/22 19:43 12/09/22 19:43 12/09/22 19:43 12/09/22 19:43 Results - Labs 12/10/22 06:41 12/10/22 06:41 Abnormal Lab Results - Last 24 Hours (Table) 12/09/22 12/09/22 12/10/22 Range/Units 20:14 20:14 02:27 WBC 14.8 H (3.8-10.6) k/uL MCV 78.0 L (80.0-100.0) fL MCH 24.7 L (25.0-35.0) pg Neutrophils # 10.7 H (1.3-7.7) k/uL Chloride (98-107) mmol/L Carbon Dioxide 19 L (22-30) mmol/L Glucose 148 H (74-99) mg/dL AST 41 H (14-36) U/L ALT (4-34) U/L Total Protein 8.3 H (6.3-8.2) g/dL Urine Appearance Cloudy H (Clear) Urine Protein Trace H (Negative) Ur Leukocyte Esterase Trace H (Negative) Ur Squamous Epith Cells 6 H (0-4) /hpf Urine Mucus Many H (None) /hpf 12/10/22 12/10/22 Range/Units 06:41 06:41 WBC 10.8 H (3.8-10.6) k/uL MCV 78.5 L (80.0-100.0) fL MCH (25.0-35.0) pg Neutrophils # (1.3-7.7) k/uL Chloride 109 H (98-107) mmol/L Carbon Dioxide (22-30) mmol/L Glucose (74-99) mg/dL AST 124 H (14-36) U/L ALT 104 H (4-34) U/L Total Protein (6.3-8.2) g/dL Urine Appearance (Clear) Urine Protein (Negative) Ur Leukocyte Esterase (Negative) Ur Squamous Epith Cells (0-4) /hpf Urine Mucus (None) /hpf Diabetes panel 12/09/22 12/10/22 Range/Units 20:14 06:41 Sodium 139 139 (137-145) mmol/L Potassium 3.9 4.0 (3.5-5.1) mmol/L Chloride 105 109 H (98-107) mmol/L Carbon Dioxide 19 L 26 (22-30) mmol/L BUN 12 8 (7-17) mg/dL Creatinine 0.64 0.56 (0.52-1.04) mg/dL Glucose 148 H 82 (74-99) mg/dL Calcium 9.8 8.5 (8.4-10.2) mg/dL AST 41 H 124 H (14-36) U/L ALT 23 104 H (4-34) U/L Alkaline Phosphatase 99 93 (38-126) U/L Total Protein 8.3 H 6.4 (6.3-8.2) g/dL Albumin 4.9 3.6 (3.5-5.0) g/dL Calcium panel 12/09/22 12/10/22 Range/Units 20:14 06:41 Calcium 9.8 8.5 (8.4-10.2) mg/dL Albumin 4.9 3.6 (3.5-5.0) g/dL Pituitary panel 12/09/22 12/10/22 Range/Units 20:14 06:41 Sodium 139 139 (137-145) mmol/L Potassium 3.9 4.0 (3.5-5.1) mmol/L Chloride 105 109 H (98-107) mmol/L Carbon Dioxide 19 L 26 (22-30) mmol/L BUN 12 8 (7-17) mg/dL Creatinine 0.64 0.56 (0.52-1.04) mg/dL Glucose 148 H 82 (74-99) mg/dL Calcium 9.8 8.5 (8.4-10.2) mg/dL Adrenal panel 12/09/22 12/10/22 Range/Units 20:14 06:41 Sodium 139 139 (137-145) mmol/L Potassium 3.9 4.0 (3.5-5.1) mmol/L Chloride 105 109 H (98-107) mmol/L Carbon Dioxide 19 L 26 (22-30) mmol/L BUN 12 8 (7-17) mg/dL Creatinine 0.64 0.56 (0.52-1.04) mg/dL Glucose 148 H 82 (74-99) mg/dL Calcium 9.8 8.5 (8.4-10.2) mg/dL Total Bilirubin 0.5 0.8 (0.2-1.3) mg/dL AST 41 H 124 H (14-36) U/L ALT 23 104 H (4-34) U/L Alkaline Phosphatase 99 93 (38-126) U/L Total Protein 8.3 H 6.4 (6.3-8.2) g/dL Albumin 4.9 3.6 (3.5-5.0) g/dL
--- NOTE | 2022-12-10 11:40 | P.CRDCN ---
History of Present Illness Consult date: 12/10/22 Reason for Consult (text): Cardiac risk assessment, had appointment for Today History of present illness: History of present illness: This is a 22-year-old female with no significant past medical history. No cardiac history and no previous cardiac workup. We have been asked to evaluate the patient for cardiac risk assessment, patient had appointment for today. Patient states that she had an appointment scheduled today with her PCP, Dr. Karie Jeter. She has not been seen by a internal communications intern nor does she have any appointment set up with cardiology. Patient states that she has had workup for abdominal pain and did have a palpitations for which she had a monitor. Patient presented to the emergency center due to abdominal pain and is scheduled for robotic cholecystectomy today. She denies having any chest pain. She states she's had nausea and vomiting sometimes some dizziness and sometimes fever. She states her abdominal pain worsened yesterday. She denies having any lower extremity edema, no blood in her stools and no vomiting blood. No history of TIA or CVA. She denies having any palpitations at this time. No lower ext remity edema. She states she lost 55 pounds and stopped taking Adipex and the pain in her abdomen developed. She has been a nonsmoker. She is normally active and walks 3 days a week. Patient is seen today in the emergency center waiting for a bed on the [facility] floor. EKG sinus rhythm Home cardiac medications: None Review Of Systems: At the time of my evaluation: Constitutional: No fever, no chills. No weakness, fatigue or lethargy. EENT: No headache. No dizziness. Lungs: No shortness of breath, cough, no sputum production. No wheezing. Cardiovascular: No chest pain, no lower extremity edema. No palpitations. No paroxysmal nocturnal dyspnea. No orthopnea. No lightheadedness or dizziness. No syncopal episodes. Abdominal: Reports abdominal pain. Reports nausea, and vomiting. No diarrhea. No constipation. No bloody or tarry stools. Genitourinary: No dysuria.. No urinary retention. Musculoskeletal: No myalgias. No muscle weakness, no frequent falls. No back pain. No neck pain. Integumentary: No wounds. No rash. No unusual bruising. Neurologic: No aphasia. No facial droop. No change in mentation. No head injury. No headache. Physical examination: Gen: This is a 22-year-old female. She is resting on ER stretcher and appears to be comfortable and in no acute distress. VS: reviewed HEENT: Head is atraumatic, normocephalic. Pupils equal, round. Sclerae is anicteric. NECK: Supple. No JVD. . LUNGS: Clear to auscultation. No wheezes or rhonchi. No intercostal retractions. HEART: Regular rate and rhythm. No murmur. ABDOMEN: Soft right upper quadrant tenderness. EXTREMITIES: No pedal edema. No calf tenderness. NEUROLOGICAL: Patient is awake, alert and oriented x3. Assessment: Abdominal pain, scheduled for robotic cholecystectomy Patient is cleared from cardiology for surgical intervention. Plan: Patient had follow-up appointment scheduled today with her PCP, Dr. Karie Jeter. Patient does not have an appointment with cardiology. No further cardiac workup at this time. Cardiology will sign off and follow on an as-needed basis. Thank you kindly for this consultation. Nurse practitioner note has been reviewed, I agree with documented findings and plan of care. Patient was seen and examined. Past Medical History Past Medical History: Asthma Additional Past Medical History / Comment(s): History of tailbone fracture; Hyperprolactinemia History of Any Multi-Drug Resistant Organisms: MRSA Date of last positivie culture/infection: 01/29/15 MDRO Source:: Left leg Past Surgical History: Adenoidectomy, Ear Surgery, Tonsillectomy Past Anesthesia/Blood Transfusion Reactions: No Reported Reaction Past Psychological History: Anxiety, Depression Smoking Status: Never smoker Past Alcohol Use History: None Reported Past Drug Use History: None Reported - Past Family History Mother Family Medical History: Hypertension Father Family Medical History: Diabetes Mellitus, Hypertension Medications and Allergies Home Medications Medication Instructions Recorded Confirmed Type Oms-Oqbw-Dynae Acid 1 cap PO DAILY 12/10/22 12/10/22 History [-U Capsule (formulary)] Sertraline [Zoloft] 50 mg PO DAILY 12/10/22 12/10/22 History Allergies Allergy/AdvReac Type Severity Reaction Status Date / Time cephalexin monohydrate Allergy Anaphylaxis Verified 10/02/21 06:09 [From Keflex] clindamycin Allergy Rash/Hives Verified 10/03/21 00:34 vinyl ether Allergy Rash/Hives Verified 12/10/22 08:34 Physical Exam Vitals: Vital Signs Temp Pulse Resp BP Pulse Ox 12/10/22 08:45 98.1 F 63 17 113/79 100 12/10/22 06:44 52 L 18 107/78 99 12/09/22 22:01 61 18 94/66 100 12/09/22 19:43 98 F 61 20 101/58 100 Intake and Output 12/09/22 12/10/22 12/10/22 22:59 06:59 14:59 Other: Weight 90.718 kg Results 12/10/22 06:41 12/10/22 06:41 Cardiac Enzymes 12/09/22 12/09/22 12/10/22 Range/Units 20:14 20:14 06:41 AST 41 H 124 H (14-36) U/L Troponin I <0.012 (0.000-0.034) ng/mL CBC 12/09/22 12/10/22 Range/Units 20:14 06:41 WBC 14.8 H 10.8 H (3.8-10.6) k/uL RBC 5.25 4.57 (3.80-5.40) m/uL Hgb 13.0 11.6 (11.4-16.0) gm/dL Hct 40.9 35.8 (34.0-46.0) % Plt Count 347 288 (150-450) k/uL Comprehensive Metabolic Panel 12/09/22 12/10/22 Range/Units 20:14 06:41 Sodium 139 139 (137-145) mmol/L Potassium 3.9 4.0 (3.5-5.1) mmol/L Chloride 105 109 H (98-107) mmol/L Carbon Dioxide 19 L 26 (22-30) mmol/L BUN 12 8 (7-17) mg/dL Creatinine 0.64 0.56 (0.52-1.04) mg/dL Glucose 148 H 82 (74-99) mg/dL Calcium 9.8 8.5 (8.4-10.2) mg/dL AST 41 H 124 H (14-36) U/L ALT 23 104 H (4-34) U/L Alkaline Phosphatase 99 93 (38-126) U/L Total Protein 8.3 H 6.4 (6.3-8.2) g/dL Albumin 4.9 3.6 (3.5-5.0) g/dL Current Medications Generic Name Dose Route Start Last Admin Trade Name Freq PRN Reason Stop Dose Admin Sodium Chloride 1,000 mls @ 75 mls/hr 12/10/22 00:30 12/10/22 02:57 Saline 0.9% IV 75 mls/hr .[id number] ILDA Administration Acetaminophen 1,000 mg/ IV 100 mls @ 400 mls/hr 12/10/22 06:30 12/10/22 08:46 Solution IVPB 12/11/22 00:01 400 mls/hr Q6HR ILDA Administration Metronidazole 500 mg/ IV 100 mls @ 100 mls/hr 12/10/22 07:00 Solution IVPB 12/11/22 23:00 ONCE PRN Pre-Op Protocol Metronidazole 500 mg/ IV 100 mls @ 100 mls/hr 12/10/22 12:00 Solution IVPB Q6HR ILDA Protocol Levofloxacin 500 mg/ IV 100 mls @ 100 mls/hr 12/10/22 06:30 12/10/22 09:18 Solution IVPB 100 mls/hr Q24H ILDA Administration Protocol Ketorolac Tromethamine 15 mg 12/10/22 00:19 Ketorolac 15 Mg/Ml 1 Ml Vial IVP 12/13/22 00:19 Q6HR PRN Moderate Pain (Scale 4 to 6) Morphine Sulfate 4 mg 12/10/22 00:19 Morphine Sulfate 4 Mg/Ml Syringe IV Q4HR PRN Severe Pain (Scale 7 to 10) Naloxone HCl 0.2 mg 12/10/22 00:19 Naloxone 0.4 Mg/Ml 1 Ml Vial IV Q2M PRN Opioid Reversal Ondansetron HCl 4 mg 12/10/22 00:19 Ondansetron 4 Mg/2 Ml Vial IVP Q8HR PRN Nausea And Vomiting Intake and Output 12/09/22 12/10/22 12/10/22 22:59 06:59 14:59 Other: Weight 90.718 kg 12/10/22 06:41 12/10/22 06:41
--- NOTE | 2022-12-10 11:43 | P.CONS ---
History of Present Illness - Reason for Consult Consult date: 12/10/22 Elevated LFTs, possible choledocholithiasis Requesting physician: Kimberly Alex - Chief Complaint Abdominal pain - History of Present Illness Is a 22-year-old female with no significant past medical history who presented to the emergency department with complaints of epigastric and right upper quadrant abdominal pain. She states that she's had intermittent pain over the last few days and it progressively has gotten worse. She denies any previous history of gallbladder disease. She had a ultrasound of the abdomen reporting few scattered gallstones within the dilated gallbladder. No evidence of wall thickening. Cholecystic fluid. Given positive sonographic Orantes sign correlate for acute cholecystitis. General surgery was consulted and saw patient this morning, initial plan was for cholecystectomy today however she had elevated LFTs and consulted gastroenterology for possible choledocholithiasis. Admitting labs WBC 14.8 hemoglobin 13 platelet count 347,000 sodium 139 potassium 3.9 BUN 12 creatinine 0.6 total bilirubin 0.5 AST 41 ALT 23 alkaline p hosphatase 99 amylase 67 lipase 278. The patient currently states she does have some improvement in pain with pain medication on board. No nausea or vomiting at this time. She's been afebrile. She denies any fevers, chills or body aches. Today's Labs WBC 10.8 hemoglobin 11.6 platelet count 288,000 sodium 139 potassium 4.0 BUN 8 creatinine 0.5 total bilirubin 0.8 AST 124 ALT 104 alkaline phosphatase 93 Review of Systems REVIEW OF SYSTEMS: CARDIOPULMONARY: No chest pain or shortness of breath. Gastrointestinal: Right upper quadrant and epigastric pain. No nausea or vomiting. No hematemesis, coffee-ground emesis. No rectal bleeding, or melena. GENITOURINARY: No dysuria or hematuria. MUSCULOSKELETAL: Reports normal range of motion. SKIN: No rashes. No jaundice. ENDOCRINE: No chills, fevers. No excessive weight gain or loss. No polydipsia or polyuria. PSYCHIATRIC: Unremarkable. NEUROLOGY: No change in mental status. Denies dizziness, headache. ENT: Vision unremarkable. CONSTITUTIONAL: No recent weight loss. No fever, chills, night sweats. Past Medical History Past Medical History: Asthma Additional Past Medical History / Comment(s): History of tailbone fracture; Hyperprolactinemia History of Any Multi-Drug Resistant Organisms: MRSA Year Discovered:: 01/29/15 MDRO Source:: Left leg Past Surgical History: Adenoidectomy, Ear Surgery, Tonsillectomy Past Anesthesia/Blood Transfusion Reactions: No Reported Reaction Past Psychological History: Anxiety, Depression Smoking Status: Never smoker Past Alcohol Use History: None Reported Past Drug Use History: None Reported - Past Family History Mother Family Medical History: Hypertension Father Family Medical History: Diabetes Mellitus, Hypertension Medications and Allergies Home Medications Medication Instructions Recorded Confirmed Type Hea-Jodj-Hqijy Acid 1 cap PO DAILY 12/10/22 12/10/22 History [-U Capsule (formulary)] Sertraline [Zoloft] 50 mg PO DAILY 12/10/22 12/10/22 History Allergies Allergy/AdvReac Type Severity Reaction Status Date / Time cephalexin monohydrate Allergy Anaphylaxis Verified 10/02/21 06:09 [From Keflex] clindamycin Allergy Rash/Hives Verified 10/03/21 00:34 vinyl ether Allergy Rash/Hives Verified 12/10/22 08:34 Physical Exam Vitals: Vital Signs Temp Pulse Resp BP Pulse Ox 12/10/22 08:45 98.1 F 63 17 113/79 100 12/10/22 06:44 52 L 18 107/78 99 12/09/22 22:01 61 18 94/66 100 12/09/22 19:43 98 F 61 20 101/58 100 Intake and Output 12/09/22 12/10/22 12/10/22 22:59 06:59 14:59 Other: Weight 90.718 kg General appearance: The patient is alert, oriented, appears in no acute distress. HET: Head is normocephalic and atraumatic. Conjunctiva pink. Sclera anicteric. Neck: Supple without lymphadenopathy. Trachea midline. Heart: S1 S2. Regular rate and rhythm. Lungs: Clear to auscultation. Abdomen: Soft, epigastric and right upper quadrant tenderness with palpation, nondistended. No guarding or rigidity. Skin: No rashes. No jaundice. Extremities: Normal skin color and turgor. No pedal edema. Neurological: No focal deficits. Alert and oriented x3. Results CBC & Chem 7: 12/10/22 06:41 12/10/22 06:41 Labs: Abnormal Lab Results - Last 24 Hours (Table) 12/09/22 12/09/22 12/10/22 Range/Units 20:14 20:14 02:27 WBC 14.8 H (3.8-10.6) k/uL MCV 78.0 L (80.0-100.0) fL MCH 24.7 L (25.0-35.0) pg Neutrophils # 10.7 H (1.3-7.7) k/uL Chloride (98-107) mmol/L Carbon Dioxide 19 L (22-30) mmol/L Glucose 148 H (74-99) mg/dL AST 41 H (14-36) U/L ALT (4-34) U/L Total Protein 8.3 H (6.3-8.2) g/dL Urine Appearance Cloudy H (Clear) Urine Protein Trace H (Negative) Ur Leukocyte Esterase Trace H (Negative) Ur Squamous Epith Cells 6 H (0-4) /hpf Urine Mucus Many H (None) /hpf 12/10/22 12/10/22 Range/Units 06:41 06:41 WBC 10.8 H (3.8-10.6) k/uL MCV 78.5 L (80.0-100.0) fL MCH (25.0-35.0) pg Neutrophils # (1.3-7.7) k/uL Chloride 109 H (98-107) mmol/L Carbon Dioxide (22-30) mmol/L Glucose (74-99) mg/dL AST 124 H (14-36) U/L ALT 104 H (4-34) U/L Total Protein (6.3-8.2) g/dL Urine Appearance (Clear) Urine Protein (Negative) Ur Leukocyte Esterase (Negative) Ur Squamous Epith Cells (0-4) /hpf Urine Mucus (None) /hpf Assessment and Plan (1) Transaminitis Narrative/Plan: 22-year-old female presented with epigastric and right upper quadrant pain who underwent ultrasound showing scattered gallstones with dilated gallbladder wall consistent with possible cholecystitis. Repeat labs today had elevation of AST and ALT 124 and 104 respectively with normal total bilirubin at 0.8 and alkaline phosphatase at 93. Gen. surgery initially had patient scheduled today for cholecystectomy however related to the elevated LFTs requested gastroenterology to evaluate patient for possible choledocholithiasis. Ultrasound of gallbladder showed no dilation of common bile duct. Labs are not consistent with a cholestatic pattern, would recommend MRCP for further evaluation of choledocholithiasis. Further recommendations forthcoming regarding need for ERCP based on MRCP results. Current Visit: Yes Status: Acute Code(s): R74.01 - ELEVATION OF LEVELS OF LIVER TRANSAMINASE LEVELS SNOMED Code(s): 613940611 (2) Cholecystitis Current Visit: Yes Status: Acute Code(s): K81.9 - CHOLECYSTITIS, UNSPECIFIED SNOMED Code(s): 69006712 (3) Cholelithiasis Current Visit: Yes Status: Acute Code(s): K80.20 - CALCULUS OF GALLBLADDER W/O CHOLECYSTITIS W/O OBSTRUCTION SNOMED Code(s): 079990523 Plan: 1. Continue symptomatic and supportive care 2. Diet per recommendations from general surgery 3. Recommend MRCP 4. Continue pain medication as ordered 5. Antiemetics as needed 6. Protonix 40 mg prophylaxis 7. Daily CBC, CMP 8. Continue antibiotics as ordered 9. Further recommendations forthcoming based on clinical course Thank you for this consultation, we will continue to follow. Dr. Jc Cantu I agree with the dictator's note, documented as a scribe by Aliyah Houston.
[2022-12-10] MEDS: metroNIDAZOLE-NS PMX 500 MG in SALINE 1 100ML.BAG IVPB SCH ×2 (12:14→18:56)
--- NOTE | 2022-12-10 16:14 | MR ---
EXAMINATION TYPE: MR MRCP DATE OF EXAM: 12/10/2022 4:03 PM CLINICAL INDICATION:Female, 22 years old with history of Choledocholithiasis; Epigastric and RUQ pain x 3 weeks off and on. COMPARISON: Ultrasound 12/08/2022 TECHNIQUE: Multi planar, T2-weighted imaging with and without fat saturation and chemical shift imag ing was performed of the abdomen. Then, heavily T2 weighted imaging (half-Fourier acquisition single- shot turbo spin-echo) was utilized in order to study the biliary system. Maximum intensity projectio n images were reconstructed from the original data of the biliary tree. 3D images were created on [employer] work station. No Gadolinium given. FINDINGS: MRCP: The intrahepatic ducts have a normal appearance. The common bile duct at the level of the arita creatic head measures 4 mm in size. The common hepatic duct measures 5 mm in size. The pancreatic du ct is normal. The gallbladder demonstrates scattered low T1/T2 signal gallstones are present there is mild thickeni ng of the gallbladder wall measures 2 mm possibly pericholecystic fluid. Abdomen: Liver: Diffuse parenchymal signal loss on chemical shift artifact is imaging. Pancreas: Unremarkable. Spleen: Unremarkable. Adrenal glands: Unremarkable. Kidneys: Unremarkable. Stomach and Bowel: Unremarkable as visualized. Peritoneum: No evidence of pneumoperitoneum, free fluid, or adenopathy. Vasculature: Unremarkable. No aortic aneurysm. Abdominal wall: Unremarkable. Musculoskeletal: The osseous structures appear intact. IMPRESSION: 1. Cholelithiasis with gallbladder wall thickening and pericholecystic fluid, correlate for acute ch olecystitis. This can be confirmed with HIDA scan. 2. No evidence to suggest ductal stricture, choledocholithiasis, or biliary ductal dilatation. 3. Hepatic steatosis.
--- NOTE | 2022-12-10 19:24 | P.PN ---
Progress Note - Text Progress Note Date: 12/10/22 Cardiology note appreciated. MRCP images independently reviewed demonstrates no dilation of the common bile duct. MRCP report review demonstrates no strictures or evidence of choledocholithiasis. Features of cholecystitis confirmed. Recommend cholecystectomy due to acute cholecystitis with complications from gallstones. Inpatient hospitalization advised
[2022-12-10] MEDS: MORPHINE SULFATE 4 MG/ML SYRINGE IV PRN (21:07)
[2022-12-11] MEDS: ACETAMINOPHEN IV (For NPO) 1,000 MG in EMPTY BAG 1 BAG IVPB SCH (00:22)
[2022-12-11] MEDS: metroNIDAZOLE-NS PMX 500 MG in SALINE 1 100ML.BAG IVPB SCH ×4 (00:58→20:20)
[2022-12-11] MEDS: MORPHINE SULFATE 4 MG/ML SYRINGE IV PRN ×4 (05:42→21:58)
[2022-12-11] MEDS: SODIUM CHLORIDE 0.9% 1,000 ML IV SCH ×2 (05:47→16:28)
[2022-12-11] MEDS ORDERED: INDOCYANINE GREEN 25 MG VIAL IV STA (06:11)
[2022-12-11] MEDS: ONDANSETRON 4 MG/2 ML VIAL IVP PRN (06:26)
[2022-12-11] MEDS: LEVOFLOXACIN 500MG-D5W PMX 500 MG in DEXTROSE/WATER 1 100ML.BAG IVPB SCH (06:47)
[2022-12-11 06:56] LABS: Basophils % (A) 0 %; Eosinophils # (A) 0.2 k/uL (0-0.7); Eosinophils % (A) 2 %; HGB 11.8 gm/dL (11.4-16.0); Hypochromasia Slight; Lymphocytes # (A) 3.6 k/uL (1.0-4.8); Lymphocytes % (A) 44 %; MCH 25.4 pg (25.0-35.0); MCHC 31.9 g/dL (31.0-37.0); MCV 79.6 fL (80.0-100.0); Mean Platelet Volume 7.7; Monocytes # (A) 0.3 k/uL (0-1.0); Monocytes % (A) 4 %; Neutrophils # (A) 3.9 k/uL (1.3-7.7); Neutrophils % (A) 48 %; Platelet Count 286 k/uL (150-450); RBC 4.65 m/uL (3.80-5.40); RDW 15.6 % (11.5-15.5); WBC 8.2 k/uL (3.8-10.6)
[2022-12-11 07:02] LABS: ALT 69 U/L (4-34); AST 48 U/L (14-36); African American GFR (CKD) >90 (>60 ml/min/1.73 sqM); Albumin 3.5 g/dL (3.5-5.0); Albumin/Globulin Ratio 1.3; Alkaline Phosphatase 83 U/L (38-126); Anion Gap 6 mmol/L; Blood Urea Nitrogen 11 mg/dL (7-17); Calcium 8.4 mg/dL (8.4-10.2); Carbon Dioxide 21 mmol/L (22-30); Chloride 113 mmol/L (98-107); Globulin 2.8 g/dL; Glucose 79 mg/dL (74-99); Non-African American GFR(CKD) >90 (>60 ml/min/1.73 sqM); Potassium 4.3 mmol/L (3.5-5.1); Sodium 140 mmol/L (137-145); Total Bilirubin 0.3 mg/dL (0.2-1.3); Total Protein 6.3 g/dL (6.3-8.2)
--- NOTE | 2022-12-11 09:03 | P.PN ---
Subjective Progress Note Date: 12/11/22 Principal diagnosis: Abdominal pain, Cholelithiasis This is a 22-year-old female with no significant past medical history who presented to the emergency department with complaints of epigastric and right upper quadrant abdominal pain. She states that she's had intermittent pain over the last few days and it progressively has gotten worse. She denies any previous history of gallbladder disease. She had a ultrasound of the abdomen reporting few scattered gallstones within the dilated gallbladder. No evidence of wall thickening. Cholecystic fluid. Given positive sonographic Orantes sign correlate for acute cholecystitis. General surgery was consulted and saw patient this morning, initial plan was for cholecystectomy today however she had elevated LFTs and consulted gastroenterology for possible choledocholithiasis. Admitting labs WBC 14.8 hemoglobin 13 platelet count 347,000 sodium 139 potassium 3.9 BUN 12 creatinine 0.6 total bilirubin 0.5 AST 41 ALT 23 alkaline phosphatase 99 amylase 67 lipase 278. The patient currently states she does have some improvement in pain with pain medication on board. No nausea or vomiting at this time. She's been afebrile. She denies any fevers, chills or body aches. WBC 10.8 hemoglobin 11.6 platelet count 288,000 sodium 139 potassium 4.0 BUN 8 creatinine 0.5 total bilirubin 0.8 AST 124 ALT 104 alkaline phosphatase 93 12/11/2022 Patient was seen and examined today as a follow-up. She states she had intermittent pain throughout the night. Just recently received more pain. Denies any nausea or vomiting. Underwent MRCP with no findings of cholelithiasis with gallbladder wall thickening and pericholecystic fluid correlate for acute cholecystitis. No evidence to suggest ductal stricture, choledocholithiasis or biliary ductal dilation. Hepatic steatosis. Patient is scheduled for cholecystectomy today with general surgery. Repeat labs today total bilirubin 0.3 AST 48 ALT 69 alkaline phosphatase 83 Objective - Vital Signs Vital signs: Vital Signs Temp 98.5 F 12/11/22 04:14 Pulse 59 L 12/11/22 04:14 Resp 16 12/11/22 04:14 BP 110/70 12/11/22 04:14 Pulse Ox 97 12/11/22 04:14 FiO2 Intake & Output 12/10/22 12/11/22 12/11/22 18:59 06:59 18:59 Weight 90.718 kg Other: Voiding Method Toilet # Voids 2 - Exam General appearance: The patient is alert, oriented, appears in no acute distress. HET: Head is normocephalic and atraumatic. Conjunctiva pink. Sclera anicteric. Neck: Supple without lymphadenopathy. Abdomen: Soft, epigastric and right upper quadrant tenderness, nondistended. No guarding or rigidity. Extremities: Normal skin color and turgor. No pedal edema Skin: No rashes, no jaundice Neurological: No focal deficits. Alert and oriented. - Labs CBC & Chem 7: 12/11/22 06:24 12/11/22 06:24 Labs: Abnormal Lab Results - Last 24 Hours (Table) 12/10/22 12/11/22 Range/Units 06:41 06:24 MCV 79.6 L (80.0-100.0) fL RDW 15.6 H (11.5-15.5) % Chloride 109 H (98-107) mmol/L AST 124 H (14-36) U/L ALT 104 H (4-34) U/L Assessment and Plan (1) Transaminitis Narrative/Plan: 22-year-old female presented with epigastric and right upper quadrant pain who underwent ultrasound showing scattered gallstones with dilated gallbladder wall consistent with possible cholecystitis. Repeat labs today had elevation of AST and ALT 124 and 104 respectively with normal total bilirubin at 0.8 and alkaline phosphatase at 93. Gen. surgery initially had patient scheduled today for cholecystectomy however related to the elevated LFTs requested gastroenterology to evaluate patient for possible choledocholithiasis. Ultrasound of gallbladder showed no dilation of common bile duct. Labs are not consistent with a cholestatic pattern, would recommend MRCP for further evaluation of choledo cholithiasis. Further recommendations forthcoming regarding need for ERCP based on MRCP results. MRCP completed, shows choledocholithiasis, cholecystitis. No evidence of CBD dilation, ductal stricture or evidence of choledocholithiasis. No further workup from gastroenterology indicated. Current Visit: Yes Status: Acute Code(s): R74.01 - ELEVATION OF LEVELS OF LIVER TRANSAMINASE LEVELS SNOMED Code(s): 519275428 (2) Cholecystitis Narrative/Plan: Patient scheduled for robotic cholecystectomy today with Dr. Alex Current Visit: Yes Status: Acute Code(s): K81.9 - CHOLECYSTITIS, UNSPECIFIED SNOMED Code(s): 62504502 (3) Cholelithiasis Current Visit: Yes Status: Acute Code(s): K80.20 - CALCULUS OF GALLBLADDER W/O CHOLECYSTITIS W/O OBSTRUCTION SNOMED Code(s): 211456634 Plan: 1. Continue symptomatic and supportive care 2. Nothing by mouth 3. MRCP reviewed, no indication for any endoscopic evaluation 4. Continue pain medication as ordered 5. Antiemetics as needed 6. Protonix 40 mg prophylaxis 7. Continue antibiotics per recommendations from general surgery 8. Patient is scheduled for robotic cholecystectomy today 9. No indication for any further workup from gastroenterology. Thank you for this consultation, we will sign off at this time. Dr. Jc Cantu I agree with the dictator's note, documented as a scribe by Aliyah Houston.
[2022-12-11] MEDS ORDERED: LACTATED RINGERS 1,000 ML IV ONE (10:47)
[2022-12-11] MEDS ORDERED: DEXAMETHASONE SOD PHOSPHATE 4 MG/ML 1 ML VIAL IVP ONE (10:52)
[2022-12-11] MEDS ORDERED: FAMOTIDINE 20 MG/2 ML VIAL IVP ONE (10:53)
[2022-12-11] MEDS ORDERED: MIDAZOLAM 2 MG/2 ML VIAL ONE (11:11)
[2022-12-11] MEDS ORDERED: GLYCOPYRROLATE 0.2 MG/ML 2 ML VIAL ONE (11:11)
[2022-12-11] MEDS ORDERED: NEOSTIGMINE 1 MG/ML 10 ML VIAL ONE (11:11)
[2022-12-11] MEDS ORDERED: PROPOFOL 10 MG/ML 20 ML VIAL IV ONE (11:11)
[2022-12-11] MEDS ORDERED: ROCURONIUM 10 MG/ML (5 ML VIAL) IV ONE (11:11)
[2022-12-11] MEDS ORDERED: LIDOCAINE 2% INJ 20 MG/ML (2 ML VIAL) ONE (11:11)
[2022-12-11] MEDS ORDERED: fentaNYL (PF) 50 MCG/ML 2 ML AMP ONE (11:11)
[2022-12-11] MEDS ORDERED: SUCCINYLCHOLINE CHLORIDE 200 MG/10 ML VIAL IV ONE (11:11)
--- NOTE | 2022-12-11 11:12 | P.PN ---
Subjective Progress Note Date: 12/11/22 CHIEF COMPLAINT: Cholecystitis HISTORY OF PRESENT ILLNESS: The patient is a 22-year-old -year-old female limited with cholecystitis including elevated liver enzymes. Today, liver enzymes are improving. She has been seen by GI. She completed MRCP. ROS: No fevers or chills.No productive sputum PHYSICAL EXAM: VITAL SIGNS: Reviewed CONSTITUTIONAL: Well developed and in no acute distress. EYES: Conjuctivae without sclera icterus. Extraocular movements grossly intact. HEAD, EARS, NOSE, THROAT: Moist buccal mucosa. Head is atraumatic, normocephalic. Hears conversational speech. No nasal drainage. RESPIRATORY: Non-labored respirations and equal bilateral excursions. CARDIOVASCULAR: Palpable 2+ radial pulses. ABDOMEN: Tender right upper quadrant. MUSCULOSKELETAL: No gross deformity of the lower extremities noted. No clubbing. No cyanosis. SKIN: Good skin turgor. Well perfused. NEUROLOGIC: Cranial nerves II through XII grossly intact. No focal or lateralizing signs. PSYCH: Appropriate affect. Alert and oriented to person, place and time. CLINICAL LABS: Reviewed. LFTs trending down from 120s to 40s ASSESSMENT: 1. Acute cholecystitis 2. Transaminitis 3. Transient choledocholithiasis PLAN: 1. Robotic cholecystectomy described including recovery at least 2 weeks 2. Low-fat diet described for 2-3 days postop 3. Lifting restrictions of 10 pounds for 2 weeks' reviewed 4. May have clear liquid diet in the interim up to 4 ounces Objective - Vital Signs Vital signs: Vital Signs Temp 98 F 12/11/22 10:46 Pulse 63 12/11/22 10:46 Resp 18 12/11/22 10:46 BP 127/62 12/11/22 10:46 Pulse Ox 98 12/11/22 10:46 FiO2 Intake & Output 12/10/22 12/11/22 12/11/22 18:59 06:59 18:59 Intake Total 118 Balance 118 Weight 90.718 kg Intake: Oral 118 Other: Voiding Method Toilet # Voids 2 - Labs CBC & Chem 7: 12/11/22 06:24 12/11/22 06:24 Labs: Abnormal Lab Results - Last 24 Hours (Table) 12/11/22 12/11/22 Range/Units 06:24 06:24 MCV 79.6 L (80.0-100.0) fL RDW 15.6 H (11.5-15.5) % Chloride 113 H (98-107) mmol/L Carbon Dioxide 21 L (22-30) mmol/L AST 48 H (14-36) U/L ALT 69 H (4-34) U/L
[2022-12-11] MEDS ORDERED: HEPARIN SODIUM,PORCINE 5,000 UNIT/ML 1 ML VIAL SQ ONE (11:15)
[2022-12-11] MEDS ORDERED: BUPIVACAINE (PF) 0.25% 30 ML VIAL SQ ONE (11:43)
[2022-12-11] MEDS: KETOROLAC 15 MG/ML 1 ML VIAL IVP PRN ×2 (16:27→22:05)
[2022-12-11] MEDS: ACETAMINOPHEN TAB 325 MG TAB PO PRN (20:11)
[2022-12-11] MEDS: traMADol 50 MG TAB PO PRN (20:12)
[2022-12-11] MEDS ORDERED: SERTRALINE 50 MG TAB PO SCH (21:00)
[2022-12-12] MEDS: IBUPROFEN 600 MG TAB PO PRN ×2 (00:42→11:32)
[2022-12-12] MEDS: metroNIDAZOLE-NS PMX 500 MG in SALINE 1 100ML.BAG IVPB SCH ×2 (02:43→07:03)
[2022-12-12] MEDS: MORPHINE SULFATE 4 MG/ML SYRINGE IV PRN (04:01)
[2022-12-12] MEDS: ACETAMINOPHEN TAB 325 MG TAB PO PRN (04:03)
[2022-12-12 04:09] VITALS: PULSE 66
[2022-12-12] MEDS: SODIUM CHLORIDE 0.9% 1,000 ML IV SCH (05:37)
[2022-12-12] MEDS: LEVOFLOXACIN 500MG-D5W PMX 500 MG in DEXTROSE/WATER 1 100ML.BAG IVPB SCH (05:52)
[2022-12-12] MEDS: KETOROLAC 15 MG/ML 1 ML VIAL IVP PRN (05:53)
[2022-12-12 07:08] VITALS: BP 113/77; RESP 18; TEMP 98.5
[2022-12-12] MEDS: ONDANSETRON 4 MG/2 ML VIAL IVP PRN (08:40)
[2022-12-12] MEDS: traMADol 50 MG TAB PO PRN (08:41)
--- NOTE | 2022-12-12 10:15 | P.DS ---
Providers Date of admission: 12/10/22 01:53 Expected date of discharge: 12/12/22 Attending physician: Kimberly Alex Consults: 12/10/22 06:21 Consult Physician Routine Consulting Provider: [facility] Consult Reason/Comments: [facility] Do you want consulting provider notified?: Yes 12/10/22 08:23 Consult Physician Routine Consulting Provider: Xenia Cantu Consult Reason/Comments: elevated, LFTs, possible choledocholithiasis Do you want consulting provider notified?: Yes 12/10/22 10:50 Consult Physician Routine Consulting Provider: Ed Frederick Consult Reason/Comments: Cardiac risk assessment, patient had appointment for today Do you want consulting provider notified?: Yes Primary care physician: Karie Medrano [facility] Course: Patient underwent a lap scopic cholecystectomy by Dr. Gonzalez yesterday. Patient today is doing better. Pain is improving she says. She has mild nausea but that is improved as well. She would like to go home later today. The plan is for discharge this afternoon. Outpatient follow-up with Dr. Gonzalez. Continue low-fat diet and light lifting. Patient Condition at Discharge: Fair Plan - Discharge Summary Discharge Rx Participant: No New Discharge Prescriptions: New Simethicone [Gas-X] 125 mg PO AC-TID PRN #20 capsule PRN Reason: Pain Ibuprofen [Motrin] 600 mg PO Q8HR PRN #30 tab PRN Reason: Pain Simethicone [Gas-X] 125 mg PO AC-TID PRN #20 capsule PRN Reason: Pain Acetaminophen Tab [Tylenol Tab] 1,000 mg PO Q6HR PRN #30 tablet PRN Reason: Pain Acetaminophen Tab [Tylenol Tab] 1,000 mg PO Q6HR PRN #30 tablet PRN Reason: Pain Ibuprofen [Motrin] 600 mg PO Q8HR PRN #30 tab PRN Reason: Pain Continue Sertraline [Zoloft] 50 mg PO DAILY Nrz-Sdeo-Ukrka Acid [-U Capsule (formulary)] 1 cap PO DAILY Discharge Medication List Aec-Dpzi-Izccy Acid [-U Capsule (formulary)] 1 cap PO DAILY 12/10/22 [History] Sertraline [Zoloft] 50 mg PO DAILY 12/10/22 [History] Acetaminophen Tab [Tylenol Tab] 1,000 mg PO Q6HR PRN #30 tablet 12/11/22 [Rx] Acetaminophen Tab [Tylenol Tab] 1,000 mg PO Q6HR PRN #30 tablet 12/11/22 [Rx] Ibuprofen [Motrin] 600 mg PO Q8HR PRN #30 tab 12/11/22 [Rx] Ibuprofen [Motrin] 600 mg PO Q8HR PRN #30 tab 12/11/22 [Rx] Simethicone [Gas-X] 125 mg PO AC-TID PRN #20 capsule 12/11/22 [Rx] Simethicone [Gas-X] 125 mg PO AC-TID PRN #20 capsule 12/11/22 [Rx] Follow up Appointment(s)/Referral(s): Karie Medrano MD [Primary Care Provider] - 1-2 days Kimberly Alex MD [STAFF PHYSICIAN] - 12/15/22 Patient Instructions/Handouts: *[facility] - Laparoscopic Cholecystectomy Discharge Instructions, *[facility] - Managing Your Pain After Surgery Without Opioids, Low Fat Diet (DC) Activity/Diet/Wound Care/Special Instructions: TELEHEALTH - DR WILL CALL YOU BETWEEN 8 am to 86 pm Recommend low-fat diet for the next 2 days. No lifting over 10 pounds in 2 weeks until December 25October shower. No bath tub soaks for two weeks until December 25 Diet as tolerated. Use Tylenol, simethicone and ibuprofen or Aleve scheduled for the next 24-48 hours for best pain relief. Use ice along incisions for today to prevent swelling. Discharge Disposition: HOME SELF-CARE
--- NOTE | 2022-12-14 09:59 | P.OP ---
Date of Procedure: 12/11/22 Description of Procedure: SURGEON: JAGRUTI ESPARZA MD PREOPERATIVE DIAGNOSES: 1. Acute cholecystitis due to gallstones 2. Elevated LFTs for transient choledocholithiasis 3. Obesity due to excess calories, BMI 34.3 4. Depressive disorder 5. Leukocytosis 6. Atypical chest pain POSTOPERATIVE DIAGNOSES: 1. Acute cholecystitis 2. Elevated LFTs for transient choledocholithiasis 3. Obesity due to excess calories, BMI 34.3 4. Depressive disorder OPERATION: Robotic-assisted da Koko Xi laparoscopic cholecystectomy, multiport with FIREFLY ESTIMATED BLOOD LOSS: 5 mL. SPECIMENS REMOVED: Gallbladder. COMPLICATIONS: None. OPERATIVE FINDINGS: 1. Mild edema of gallbladder wall consistent with cholecystitis INDICATIONS: The patient is a 22-year-old female who presented with atypical chest pain, elevated LFTs and ultrasound findings of acute cholecystitis due to gallstones. MRCP was obtained for concern of choledocholithiasis/common bile duct obstruction. Robotic assisted laparoscopic approach was described. Benefits and risks of the procedure including but not limited to bleeding, infection, injury to the biliary tree was described. Informed consent was obtained. DESCRIPTION OF PROCEDURE: Patient was brought to the operating room, placed in supine position. After general induction, the abdomen had been prepped and draped in standard sterile fashion. The robotic da Koko XI system was primed. After a timeout protocol was performed, the patient had been prepped and draped in standard sterile fashion. The patient was injected with indocyanine green. A 5 mm 0 degrees laparoscopic trocar entry was performed along the left upper quadrant. The abdomen insufflated to 15 mmHg pressure which was tolerated well. Diagnostic laparoscopy demonstrated no injury to bowel viscera or mesentery. The liver surface was unremarkable. Next, two 8 mm robotic ports were placed along the right upper abdomen. The camera 8-mm port was maintained along the epigastrium. A 12 mm port was placed along the left upper abdominal wall after exchanging the 5 mm port. Please note that the ports were placed at least 10 to 15 cm away from the target anatomy of the gallbladder. The robot was docked along the left lateral abdomen. The patient was repositioned in reverse Trendelenburg position. Using a grasper for arm 3, a grasper for arm 4, including hook cautery for arm 1, the robotic system was docked and primed as described. Instruments were interchanged by the social science research assistant including hook cautery, Bovie cautery and clip appliers. I had sat at the console. Dome down technique was performed from the gallbladder fundus towards the infundibulum along the hepatic fossa. The liver bed was hemostatic after the dressing hepatic attachment using cautery. A separate accessory vessel posteriorly was clipped to control for bleeding. Next attention was brought to the infundibulum and cystic structures. The infundibulum and cystic duct were dissected free from surrounding tissues. The cystic duct was isolated. FIREFLY was used to identify the cystic artery and cystic structures. A critical view of safety was obtained. Large PLASTIC clips were used throughout the entire case. Using a clip certified nursing assistant, 2 clips were placed at the junction of the infundibulum and cystic duct. The cystic duct was divided between clips. Next, the cystic artery was similarly clipped and cauterized. Electro-Bovie cautery was used to remove the gallbladder from the hepatic fossa. Hemostasis was checked and found to be adequate. The robot was undocked. I re-scrubbed into the case. Using a 10 mm Endo Catch bag via the left upper quadrant incision, the specimen was removed from the abdominal cavity. All pneumoperitoneum instruments were evacuated from the abdominal cavity. The incisions were reapproximated using 4-0 Monocryl in an interrupted subcuticular fashion. Fascial defects were less than 8 mm in size. Please note along the trocar sites, local anesthetic was placed as a field block prior to insertion of all instruments. Liquid glue was applied to the skin. At the end of the procedure needle, sponge, and instrument count had been verified correct by the shift lab technician. The patient was transferred to postanesthesia care unit in stable condition. Intraoperative films were shared with the patient's family.
== END 2022-12-12 12:14 | disposition home or self-care (01) | DRG 263 ==
LOC: EC 19:13 → 5NMEDONC 12-10 01:53 → EC 12-10 03:59 → 5NMEDONC 12-10 17:06
PROVIDERS: ADMIT Surgery Plastic and Reconstructive Surgery; ATTEND Surgery Plastic and Reconstructive Surgery
PROC: 0FT44ZZ Resection of Gallbladder, Percutaneous Endoscopic Approach (ICD-10-PCS; principal; 2022-12-11 07:30)
PROC: 8E0W4CZ Robotic Assisted Procedure of Trunk Region, Percutaneous Endoscopic Approach (ICD-10-PCS; principal; 2022-12-11 07:30)
DX: K80.00 Calculus of gallbladder with acute cholecystitis without obstruction (principal); K76.0 Fatty (change of) liver, not elsewhere classified; E66.09 Other obesity due to excess calories; Z28.310 Unvaccinated for COVID-19; J45.909 Unspecified asthma, uncomplicated; Z68.34 Body mass index [BMI] 34.0-34.9, adult; F32.A Depression, unspecified; F41.9 Anxiety disorder, unspecified; Z79.899 Other long term (current) drug therapy; Z86.14 Personal history of Methicillin resistant Staphylococcus aureus infection; Z88.1 Allergy status to other antibiotic agents; Z88.4 Allergy status to anesthetic agent
CPT/HCPCS: 36415; 74181; 76705; 80053; 81001; 81025; 82150; 83690; 84484; 85025; 87040; 88304; 93005; 96361; 96365; 96366; 96367; 96375; 99285

== ENCOUNTER 2023-04-02 10:22 | Emergency (ER) | payer OTHER ==
[2023-04-02] MEDS ORDERED: SODIUM CHLORIDE 0.9% 2,000 ML IV STA (10:34)
[2023-04-02] MEDS ORDERED: diphenhydrAMINE 50 MG/ML 1 ML VIAL IVP STA (10:34)
[2023-04-02] MEDS ORDERED: PYRIDOXINE 100 MG/ML 1 ML VIAL IVP ONE (10:45)
--- NOTE | 2023-04-02 10:50 | ED ---
Nausea/Vomiting/Diarrhea HPI - General Chief complaint: Nausea/Vomiting/Diarrhea Stated complaint: Vomiting, 19 wks Time Seen by Provider: 04/02/23 10:29 Source: patient, RN notes reviewed Mode of arrival: ambulatory Limitations: no limitations - History of Present Illness Initial comments: This is a 22-year-old female who presents to the the emergency department for nausea and vomiting in . Patient is and approximately 19 weeks . States that over the last 2 days, she has been unable to keep down even water and has also been experiencing diarrhea. She sees Dr. Gregorio, [facility] at [facility], and she was advised by them to come to the emergency department for IV fluids and further management. Denies any abdominal pain or vaginal bleeding. She had nausea at one point earlier on in , however that has since resolved. She was prescribed Zofran for this, however it wasn't effective. She didn't try taking the Zofran for this current episode of nausea and vomiting. Denies any other complications or problems in her thus far. Denies any fevers, chills, sore throat, cough, dyspnea, chest pain, palpitations, abdominal pain, back pain, or headaches. MD complaint: nausea, vomiting Onset/Timin -: days(s) - Related Data Home Medications Medication Instructions Recorded Confirmed Uku-Fflq-Utmrd Acid 1 cap PO HS 12/10/22 04/02/23 [-U Capsule (formulary)] Sertraline [Zoloft] 50 mg PO HS 12/10/22 04/02/23 Previous Rx's Medication Instructions Recorded Metoclopramide [Reglan] 10 mg PO Q6H PRN #30 tab 04/02/23 Allergies Allergy/AdvReac Type Severity Reaction Status Date / Time cephalexin monohydrate Allergy Anaphylaxis Verified 04/02/23 12:57 [From Keflex] clindamycin Allergy Rash/Hives Verified 04/02/23 12:57 vinyl ether Allergy Rash/Hives Verified 04/02/23 12:57 Review of Systems ROS Statement: Those systems with pertinent positive or pertinent negative responses have been documented in the HPI. ROS Other: All systems not noted in ROS Statement are negative. Past Medical History Past Medical History: Asthma Additional Past Medical History / Comment(s): History of tailbone fracture; Hyperprolactinemia History of Any Multi-Drug Resistant Organisms: MRSA Date of last positivie culture/infection: 01/29/15 MDRO Source:: Left leg Past Surgical History: Adenoidectomy, Section, Ear Surgery, T onsillectomy Additional Past Surgical History / Comment(s): tubes in bilateral ears as kid Past Anesthesia/Blood Transfusion Reactions: No Reported Reaction Past Psychological History: Anxiety, Depression Smoking Status: Current some day smoker Past Alcohol Use History: None Reported Past Drug Use History: Marijuana - Past Family History Mother Family Medical History: Hypertension Father Family Medical History: Diabetes Mellitus, Hypertension General Exam Limitations: no limitations General appearance: alert, in no apparent distress Head exam: Present: atraumatic, normocephalic, normal inspection Respiratory exam: Present: normal lung sounds bilaterally. Absent: respiratory distress, wheezes, rales, rhonchi, stridor Cardiovascular Exam: Present: regular rate, normal rhythm, normal heart sounds. Absent: systolic murmur, diastolic murmur, rubs, gallop, clicks Extremities exam: Present: other (Physical examination of bilateral upper extremities reveals no overlying skin changes, tenderness, or swelling. 2+ radial pulses. Capillary refill less than 1 second.) Neurological exam: Present: alert, oriented X3, CN II-XII intact Psychiatric exam: Present: normal affect, normal mood Skin exam: Present: warm, dry, intact, normal color. Absent: rash Course Vital Signs 04/02/23 04/02/23 10:23 13:03 Temperature 98.4 F 98.9 F Pulse Rate 82 78 Respiratory 20 16 Rate Blood Pressure 113/69 125/71 O2 Sat by Pulse 99 99 Oximetry Medical Decision Making - Medical Decision Making This is a 22-year-old female who presents to the emergency department for nausea and vomiting in . Was pt. sent in by a medical professional or institution? @ -Her [facility] [employer] [facility] Did you speak to anyone other than the patient for history? @ -No Did you review nursing and triage notes? @ -Yes, and I agree, it is accurate with regards to the patient's symptoms. Were old charts reviewed? @ -No Differential Diagnosis? @ -Differential Nausea and Vomiting: Gastroenteritis, appendicitis, pancreatitis, migraine, benign positional vertigo, food borne illness, pyelonephritis, irritable bowel syndrome, influenza, Covid, GERD, incarcerated hernia, intestinal obstruction, this is not meant to be an all-inclusive list. EKG interpreted by me (3pts min.)? @ -Not obtained X-rays interpreted by me (1pt min.)? @ -Not obtained CT interpreted by me (1pt min.)? @ -Not obtained U/S interpreted by me (1pt. min.)? @ -Not obtained What testing was considered but not performed? (CT, X-rays, U/S, labs)? Why? @ -None What meds were considered but not given? Why? @ -None Did you discuss the management of the patient with other professionals? @ -No Did you reconcile home meds? @ -No Was smoking cessation discussed for >3mins.? @ -No Was critical care preformed (if so, how long)? @ -No Were there social determinants of health that impacted care today? How? (Homelessness, low income, unemployed, alcoholism, drug addiction, transportation, low edu. Level, literacy, decrease access to med. care, nursing home, rehab)? @ -No Was there de-escalation of care discussed even if they declined? (Discuss DNR or withdrawal of care, Hospice)? @ -No What co-morbidities impacted this encounter? (DM, HTN, Smoking, COPD, CAD, Cancer, CVA, Hep., AIDS, mental health diagnosis, sleep apnea, morbid obesity)? @ - Was patient admitted / discharged? @ -Discharged. Lab work obtained and found to be nonactionable. Urinalysis consistent with contamination. Urine sent for culture. Patient initially treated with IV fluids, vitamin B6, and Benadryl. She only had mild improvement in nausea and the Benadryl gave her fairly intense restless legs. She was then given a dose of Reglan, and felt much better. She was tolerating oral intake without any problems. Nurses from [facility] came to auscultate tones. These were found to be WNL in the 140s. Prescription for Reglan provided with dosing instructions reviewed. She is instructed to slowly advance her diet as tolerated and remain well-hydrated. She already has a follow-up scheduled with her [facility] [employer] for Wednesday, 3 days from now, and will follow up as scheduled. Undiagnosed new problem with uncertain prognosis? @ -None Drug Therapy requiring intensive monitoring for toxicity (Heparin, Nitro, Insulin, Cardizem)? @ -None Were any procedures done? @ -None Diagnosis/symptom? @ -Nausea and vomiting in Acute, or Chronic, or Acute on Chronic? @ -Acute Uncomplicated (without systemic symptoms) or Complicated (systemic symptoms)? @ -Uncomplicated Side effects of treatment? @ -None Exacerbation, Progression, or Severe Exacerbation] @ -Not applicable Poses a threat to life or bodily function? @ -No Return precautions reviewed in depth, the patient is instructed to return to the emergency department with any new, worsening, or concerning symptoms. Patient verbalized understanding. This case was discussed in detail with the attending ED physician, Dr. Quiñones. Presentation, findings, and treatment plan discussed in detail as well. - Lab Data Result diagrams: 04/02/23 10:43 04/02/23 10:43 Lab Results 04/02/23 04/02/23 04/02/23 Range/Units 10:43 10:43 10:43 WBC 10.0 (3.8-10.6) k/uL RBC 4.85 (3.80-5.40) m/uL Hgb 13.3 (11.4-16.0) gm/dL Hct 40.8 (34.0-46.0) % MCV 84.1 (80.0-100.0) fL MCH 27.4 (25.0-35.0) pg MCHC 32.6 (31.0-37.0) g/dL RDW 15.8 H (11.5-15.5) % Plt Count 251 (150-450) k/uL MPV 7.4 Neutrophils % 72 % Lymphocytes % 21 % Monocytes % 5 % Eosinophils % 1 % Basophils % 0 % Neutrophils # 7.2 (1.3-7.7) k/uL Lymphocytes # 2.1 (1.0-4.8) k/uL Monocytes # 0.5 (0-1.0) k/uL Eosinophils # 0.1 (0-0.7) k/uL Basophils # 0.0 (0-0.2) k/uL Sodium 136 L (137-145) mmol/L Potassium 4.0 (3.5-5.1) mmol/L Chloride 105 (98-107) mmol/L Carbon Dioxide 22 (22-30) mmol/L Anion Gap 9 mmol/L BUN 9 (7-17) mg/dL Creatinine 0.45 L (0.52-1.04) mg/dL Est GFR (CKD-EPI)AfAm >90 (>60 ml/min/1.73 sqM) Est GFR (CKD-EPI)NonAf >90 (>60 ml/min/1.73 sqM) Glucose 82 (74-99) mg/dL Calcium 9.2 (8.4-10.2) mg/dL Total Bilirubin 0.6 (0.2-1.3) mg/dL AST 24 (14-36) U/L ALT 15 (4-34) U/L Alkaline Phosphatase 70 (38-126) U/L Total Protein 7.2 (6.3-8.2) g/dL Albumin 3.8 (3.5-5.0) g/dL Amylase 62 (30-110) U/L Lipase 172 (23-300) U/L HCG, Quant 9426.7 mIU/mL Urine Color Yellow Urine Appearance Cloudy H (Clear) Urine pH 6.0 (5.0-8.0) Ur Specific [place] 1.029 (1.001-1.035) Urine Protein 1+ H (Negative) Urine Glucose (UA) Negative (Negative) Urine Ketones Negative (Negative) Urine Blood Negative (Negative) Urine Nitrite Negative (Negative) Urine Bilirubin Negative (Negative) Urine Urobilinogen 2.0 (<2.0) mg/dL Ur Leukocyte Esterase Large H (Negative) Urine RBC 15 H (0-5) /hpf Urine WBC 47 H (0-5) /hpf Ur Squamous Epith Cells 44 H (0-4) /hpf Amorphous Sediment Rare H (None) /hpf Urine Bacteria Rare H (None) /hpf Urine Mucus Many H (None) /hpf Influenza Type A (PCR) (Not Detectd) Influenza Type B (PCR) (Not Detectd) RSV (PCR) (Not Detectd) SARS-CoV-2 (PCR) (Not Detectd) 04/02/23 Range/Units 10:43 WBC (3.8-10.6) k/uL RBC (3.80-5.40) m/uL Hgb (11.4-16.0) gm/dL Hct (34.0-46.0) % MCV (80.0-100.0) fL MCH (25.0-35.0) pg MCHC (31.0-37.0) g/dL RDW (11.5-15.5) % Plt Count (150-450) k/uL MPV Neutrophils % % Lymphocytes % % Monocytes % % Eosinophils % % Basophils % % Neutrophils # (1.3-7.7) k/uL Lymphocytes # (1.0-4.8) k/uL Monocytes # (0-1.0) k/uL Eosinophils # (0-0.7) k/uL Basophils # (0-0.2) k/uL Sodium (137-145) mmol/L Potassium (3.5-5.1) mmol/L Chloride (98-107) mmol/L Carbon Dioxide (22-30) mmol/L Anion Gap mmol/L BUN (7-17) mg/dL Creatinine (0.52-1.04) mg/dL Est GFR (CKD-EPI)AfAm (>60 ml/min/1.73 sqM) Est GFR (CKD-EPI)NonAf (>60 ml/min/1.73 sqM) Glucose (74-99) mg/dL Calcium (8.4-10.2) mg/dL Total Bilirubin (0.2-1.3) mg/dL AST (14-36) U/L ALT (4-34) U/L Alkaline Phosphatase (38-126) U/L Total Protein (6.3-8.2) g/dL Albumin (3.5-5.0) g/dL Amylase (30-110) U/L Lipase (23-300) U/L HCG, Quant mIU/mL Urine Color Urine Appearance (Clear) Urine pH (5.0-8.0) Ur Specific [place] (1.001-1.035) Urine Protein (Negative) Urine Glucose (UA) (Negative) Urine Ketones (Negative) Urine Blood (Negative) Urine Nitrite (Negative) Urine Bilirubin (Negative) Urine Urobilinogen (<2.0) mg/dL Ur Leukocyte Esterase (Negative) Urine RBC (0-5) /hpf Urine WBC (0-5) /hpf Ur Squamous Epith Cells (0-4) /hpf Amorphous Sediment (None) /hpf Urine Bacteria (None) /hpf Urine Mucus (None) /hpf Influenza Type A (PCR) Not Detected (Not Detectd) Influenza Type B (PCR) Not Detected (Not Detectd) RSV (PCR) Not Detected (Not Detectd) SARS-CoV-2 (PCR) Not Detected (Not Detectd) Disposition Clinical Impression: Nausea and vomiting during Disposition: HOME SELF-CARE Instructions (If sedation given, give patient instructions): Nausea and Vomiting in (ED) Additional Instructions: Return to the emergency department with any new, worsening, or concerning symp toms. You can take the Reglan up to every 6 hours as needed for nausea and vomiting. Slowly advance your diet as tolerated and remain well-hydrated. Follow up with your primary care provider in 1-2 days. Prescriptions: Metoclopramide [Reglan] 10 mg PO Q6H PRN #30 tab PRN Reason: Nausea And Vomiting Is patient prescribed a controlled substance at d/c from ED?: No Referrals: Karie Medrano MD [Primary Care Provider] - 1-2 days
[2023-04-02 10:58] LABS: Basophils % (A) 0 %; Eosinophils # (A) 0.1 k/uL (0-0.7); Eosinophils % (A) 1 %; HCT 40.8 % (34.0-46.0); HGB 13.3 gm/dL (11.4-16.0); Lymphocytes # (A) 2.1 k/uL (1.0-4.8); Lymphocytes % (A) 21 %; MCH 27.4 pg (25.0-35.0); MCHC 32.6 g/dL (31.0-37.0); MCV 84.1 fL (80.0-100.0); Mean Platelet Volume 7.4; Monocytes # (A) 0.5 k/uL (0-1.0); Monocytes % (A) 5 %; Neutrophils # (A) 7.2 k/uL (1.3-7.7); Neutrophils % (A) 72 %; Platelet Count 251 k/uL (150-450); RBC 4.85 m/uL (3.80-5.40); RDW 15.8 % (11.5-15.5)
[2023-04-02 11:11] LABS: ALT 15 U/L (4-34); AST 24 U/L (14-36); African American GFR (CKD) >90 (>60 ml/min/1.73 sqM); Albumin 3.8 g/dL (3.5-5.0); Alkaline Phosphatase 70 U/L (38-126); Amorphous Sediment,Urine Rare /hpf; Amylase 62 U/L (30-110); Anion Gap 9 mmol/L; Appearance,Urine Cloudy (Clear); Bacteria,Urine Rare /hpf; Bilirubin,Urine Negative (Negative); Blood Urea Nitrogen 9 mg/dL (7-17); Blood,Urine Negative (Negative); Calcium 9.2 mg/dL (8.4-10.2); Carbon Dioxide 22 mmol/L (22-30); Chloride 105 mmol/L (98-107); Color,Urine Yellow; Glucose 82 mg/dL (74-99); Glucose,Urine (UA) Negative (Negative); Ketones,Urine Negative (Negative); Leukocyte Esterase,Urine Large (Negative); Lipase 172 U/L (23-300); Mucus,Urine Many /hpf; Nitrite,Urine Negative (Negative); Non-African American GFR(CKD) >90 (>60 ml/min/1.73 sqM); Protein,Urine 1+ (Negative); RBC,Urine 15 /hpf (0-5); Sodium 136 mmol/L (137-145); Specific Gravity,Urine 1.029 (1.001-1.035); Squamous Epithelial Cell,Urine 44 /hpf (0-4); Total Bilirubin 0.6 mg/dL (0.2-1.3); Total Protein 7.2 g/dL (6.3-8.2); WBC,Urine 47 /hpf (0-5)
[2023-04-02 11:28] LABS: HCG,Quantitative Serum 9426.7 mIU/mL
[2023-04-02] MEDS ORDERED: METOCLOPRAMIDE 5 MG/ML 2 ML VIAL IVP STA (11:36)
[2023-04-02 13:16] VITALS: BP 125/71; PULSE 78; RESP 16; TEMP 98.9
== END 2023-04-02 13:20 | disposition home or self-care (01) ==
LOC: EC 10:22
DX: O21.9 Vomiting of pregnancy, unspecified (principal); O99.512 Diseases of the respiratory system complicating pregnancy, second trimester; J45.909 Unspecified asthma, uncomplicated; O99.342 Other mental disorders complicating pregnancy, second trimester; F41.9 Anxiety disorder, unspecified; F32.A Depression, unspecified; O99.332 Smoking (tobacco) complicating pregnancy, second trimester; F17.200 Nicotine dependence, unspecified, uncomplicated; O99.322 Drug use complicating pregnancy, second trimester; F12.90 Cannabis use, unspecified, uncomplicated; Z3A.19 19 weeks gestation of pregnancy; Z79.899 Other long term (current) drug therapy; Z20.822 Contact with and (suspected) exposure to COVID-19; Z88.1 Allergy status to other antibiotic agents; Z88.8 Allergy status to other drugs, medicaments and biological substances
CPT/HCPCS: 36415; 80053; 82150; 83690; 85025; 81001; 84702; 87086; 87636; 99284; 96374; 96375 ×2; 96361 ×2; J1200; J3415; J2765